=== PATIENT | male | born 1940 | race Caucasian/White ===

== ENCOUNTER → 2023-11-21 08:32 | Outpatient (REF) | payer MEDICARE, OTHER, SELFPAY ==
[2023-11-21 12:15] LABS: Urine Albumin Negative (Neg - Trace); Urine Bilirubin Negative (Negative); Urine Character Clear (Clear); Urine Color Yellow; Urine Glucose Negative (Negative); Urine Ketone Negative (Negative); Urine Leukocyte Negative (Negative); Urine Nitrite Negative (Negative); Urine Occult Blood Negative (Negative); Urine Urobilinogen Negative (Neg - 1+)
[2023-11-21 12:17] LABS: % Basophils 0.6 % (0-2); % Eosinophils 2.7 % (0-6); % Immature Granulocytes 0.4 % (0-0.5); % Lymphocytes 26.9 % (20.5-51.1); % Monocytes 8.5 % (1.7-9.3); % Neutrophils 60.9 % (42.2-75.2); Absolute Basophils 0.1 10^3/uL (0-0.2); Absolute Eosinophils 0.3 10^3/uL (0-0.7); Absolute Lymphocytes 2.8 10^3/uL (1.2-3.4); Absolute Monocytes 0.9 10^3/uL (0.1-0.6); Absolute Neutrophils 6.3 10^3/uL (1.4-6.5); Hematocrit 38.8 % (39.0-52.0); Hemoglobin 12.7 g/dL (13.0-18.0); Mean Corp Hgb Conc. 32.7 g/dL (33.0-37.0); Mean Corpuscular Volume 91.7 fL (80.0-94.0); Mean Platelet Volume 10.1 fL (7.4-10.4); Nucleated Red Blood Cells % 0 % (-); Platelet Count 211 10^3/uL (130-400); Red Blood Cell Count 4.23 10^6/uL (4.70-6.10); Red Cell Dist. Width 15.5 % (11.5-14.5); White Blood Cell Count 10.3 10^3/uL (4.8-10.8)
[2023-11-21 13:02] LABS: ALT (SGPT) 25 U/L (0-50); AST (SGOT) 26 U/L (17-59); Albumin 3.8 g/dl (3.5-5.0); Alkaline Phosphatase 72 U/L (38-126); Blood Urea Nitrogen 17 mg/dl (9-20); Calcium 9.2 mg/dl (8.4-10.2); Carbon Dioxide 31 mmol/L (22-30); Chloride 103 mmol/L (98-107); Glucose 81 mg/dl (70-99); HDL Cholesterol 45 mg/dl; LDL Cholesterol, Calculated 33 mg/dl; Potassium 3.6 mmol/L (3.5-5.1); Sodium 139 mmol/L (135-145); Total Bilirubin 0.7 mg/dl (0.2-1.3); Total Cholesterol 107 mg/dl (50-199); Total Protein 6.2 g/dl (6.3-8.2); Triglyceride 148 mg/dl (10-149); Very Low Density Lipoprotein 29 mg/dl (0-30); eGFR > 60.00
[2023-11-21 13:06] LABS: Vitamin D, 25-OH*** 37.7 ng/mL (30-80)
[2023-11-21 13:20] LABS: TSH Reflex To Free T4 3.71 uIU/ml (0.47-4.68)
[2023-11-23 09:37] LABS: Intact PTH 97.3 pg/ml (13.6-85.8)
== END ==
LOC: HWLAB 08:32
PROVIDERS: ATTENDING PHYSICIAN Family Medicine; REFERRING PHYSICIAN Internal Medicine Cardiovascular Disease
DX: S22.080S Wedge compression fracture of T11-T12 vertebra, sequela (principal); M85.859 Other specified disorders of bone density and structure, unspecified thigh; I10 Essential (primary) hypertension; E78.2 Mixed hyperlipidemia; N18.31 Chronic kidney disease, stage 3a; K21.9 Gastro-esophageal reflux disease without esophagitis; R60.0 Localized edema; I25.10 Atherosclerotic heart disease of native coronary artery without angina pectoris
CPT/HCPCS: 36415; 80053; 80061; 81003; 82306; 83970; 84443; 85025

== ENCOUNTER → 2023-12-13 11:15 | Outpatient (REF) | payer MEDICARE, OTHER, SELFPAY ==
[2023-12-13 11:52] LABS: Ionized Calcium 1.21 mMOL/L (1.15-1.33)
[2023-12-13 11:54] LABS: % Basophils 0.8 % (0-2); % Eosinophils 3.2 % (0-6); % Immature Granulocytes 0.4 % (0-0.5); % Lymphocytes 19.6 % (20.5-51.1); % Monocytes 7.4 % (1.7-9.3); % Neutrophils 68.6 % (42.2-75.2); Absolute Basophils 0.1 10^3/uL (0-0.2); Absolute Eosinophils 0.3 10^3/uL (0-0.7); Absolute Lymphocytes 1.8 10^3/uL (1.2-3.4); Absolute Monocytes 0.7 10^3/uL (0.1-0.6); Absolute Neutrophils 6.2 10^3/uL (1.4-6.5); Hematocrit 38.8 % (39.0-52.0); Hemoglobin 12.7 g/dL (13.0-18.0); Mean Corp Hgb Conc. 32.7 g/dL (33.0-37.0); Mean Corpuscular Hgb 29.7 pg (27.0-31.0); Mean Corpuscular Volume 90.9 fL (80.0-94.0); Mean Platelet Volume 9.8 fL (7.4-10.4); Nucleated Red Blood Cells % 0 % (-); Platelet Count 227 10^3/uL (130-400); Red Blood Cell Count 4.27 10^6/uL (4.70-6.10); Red Cell Dist. Width 14.8 % (11.5-14.5); White Blood Cell Count 9.1 10^3/uL (4.8-10.8)
[2023-12-13 12:56] LABS: Calcium 9.6 mg/dl (8.4-10.2); Iron 75 ug/dl (49-181)
[2023-12-13 13:07] LABS: Percent Saturation 24 % (20-50); Total Iron Binding Capacity 301 ug/dl (261-462)
[2023-12-13 13:32] LABS: Ferritin 76.5 ng/ml (17.9-464.0)
[2023-12-13 14:03] LABS: Folate > 20.0 ng/ml (2.76-20); Vitamin B12 529 pg/ml (239-931)
[2023-12-14 11:18] LABS: Intact PTH 99.6 pg/ml (13.6-85.8)
[2023-12-16 01:15] LABS: IgA 193 mg/dl (70-400)
[2023-12-16 07:13] LABS: Endomysial IgA Antibody Titer <1:10 (<1:10)
[2023-12-17 03:03] LABS: Albumin 4.03 g/dL (3.75-5.01); Alpha 1 Globulin 0.35 g/dL (0.19-0.46); Alpha 2 Globulin 0.99 g/dL (0.48-1.05); Free Kappa Light Chains,Quant 26.77 mg/L (3.30-19.40); Free Lambda Light Chains,Quant 17.42 mg/L (5.71-26.30); IgA 197 mg/dL (68-408); IgG 802 mg/dL (768-1632); IgM 66 mg/dL (35-263); Immunofixation Electrophoresis IFE Done; Kappa/Lambda Fr Light Ratio 1.54 (0.26-1.65)
[2023-12-18 15:52] LABS: tTG IgA Antibody 6.8 EU/ml (0-19); tTG IgG Antibody 4.7 EU/ml (0-19)
== END ==
LOC: REG 11:15
PROVIDERS: Physician Assistant; ATTENDING PHYSICIAN Family Medicine
DX: D80.1 Nonfamilial hypogammaglobulinemia (principal); E21.5 Disorder of parathyroid gland, unspecified; K90.0 Celiac disease; M80.00XA Age-related osteoporosis with current pathological fracture, unspecified site, initial encounter for fracture; Z13.820 Encounter for screening for osteoporosis; D64.9 Anemia, unspecified
CPT/HCPCS: 36415; 82330; 82607; 82728; 82746; 82784; 83516; 83521; 83540; 83550; 83970; 84155; 84165; 85025; 86231; 86334

== ENCOUNTER 2023-12-20 21:27 | Inpatient (IN) | payer MEDICARE, OTHER, SELFPAY ==
[2023-12-20] VITALS (8 sets, daily range): BP systolic 106–137; BP diastolic 72–100; BMI 32.7; BMI 31.2
[2023-12-20 17:59] LABS: ALT (SGPT) 15 U/L (0-50); AST (SGOT) 26 U/L (17-59); Albumin 3.9 g/dl (3.5-5.0); Alkaline Phosphatase 68 U/L (38-126); Blood Urea Nitrogen 17 mg/dl (9-20); Calcium 9.3 mg/dl (8.4-10.2); Carbon Dioxide 25 mmol/L (22-30); Chloride 102 mmol/L (98-107); Estimated Creatinine Clearance 55 ml/min; Glucose 115 mg/dl (70-99); Potassium 4.2 mmol/L (3.5-5.1); Sodium 137 mmol/L (135-145); Total Bilirubin 0.8 mg/dl (0.2-1.3); Total Protein 6.5 g/dl (6.3-8.2); eGFR > 60.00
[2023-12-20 18:00] LABS: % Basophils 0.9 % (0-2); % Eosinophils 1.9 % (0-6); % Immature Granulocytes 0.3 % (0-0.5); % Lymphocytes 19.3 % (20.5-51.1); % Neutrophils 65.6 % (42.2-75.2); Absolute Basophils 0.1 10^3/uL (0-0.2); Absolute Eosinophils 0.2 10^3/uL (0-0.7); Absolute Monocytes 1.2 10^3/uL (0.1-0.6); Absolute Neutrophils 6.8 10^3/uL (1.4-6.5); Hematocrit 37.1 % (39.0-52.0); Hemoglobin 12.6 g/dL (13.0-18.0); Mean Corpuscular Hgb 30.2 pg (27.0-31.0); Mean Platelet Volume 10.2 fL (7.4-10.4); Nucleated Red Blood Cells % 0 % (-); Platelet Count 230 10^3/uL (130-400); Red Blood Cell Count 4.17 10^6/uL (4.70-6.10); Red Cell Dist. Width 14.9 % (11.5-14.5); White Blood Cell Count 10.3 10^3/uL (4.8-10.8)
[2023-12-20 18:05] LABS: COVID-19 Antigen Negative (Negative)
[2023-12-20 18:10] LABS: NT-proBNP 851 pg/ml
--- NOTE | 2023-12-20 18:38 | ED.GENMED ---
History of Present Illness
General
Chief Complaint: Weakness
Source: patient and spouse
Exam Limitations: none
Time Seen by Provider: 12/20/23 18:25
Travel History
Have you had any contact with someone who has COVID-19?: No
Do you have any symptoms of coronavirus? Fever > 100 degrees, chills, cough, shortness of breath, sore throat, loss of taste or smell, muscle aches, or headache?: No
History of Present Illness
History of Present Illness:
83-year-old male with increased weakness over the last week. Seem to correlate with stopping his prednisone. He had been lowering his dose and had been on it for a few years. Was on 5 mg which was stopped prior to the symptoms. Some increased
back pain but this has been an ongoing issue. No fever chills abdominal pain urinary symptoms or other complaints
Past History
Past History
ED Past Medical History: CAD, COPD, GERD, HTN, Hypercholesterolemia, Other (T12 compression fracture) and Other (Home oxygen)
ED Past Surgical History: Cardiac and Orthopedic
Social History
Tobacco: Former smoker
Alcohol: Occasional
Personal:
Phy Exam
Physical Exam
Physical Exam:
GENERAL: Initially asleep but easily arousable. Chronically ill-appearing. Chronic oxygen therapy.
EYE: Orbits normal.
NECK: Supple
CARDIAC: Regular rate and rhythm without any obvious murmurs.
LUNGS: Decreased breath sounds diffusely
ABDOMEN: Soft, without focal tenderness or distention
NEUROLOGICAL: Alert and oriented , grossly non-focal. Generally weak with very weak lower extremities bilaterally. Barely able to raise both legs up off the stretcher. Mildly weak upper extremities bilaterally but nonfocal
SKIN: Warm and dry, no rash or lesion, no discoloration, skin intact.
MUSCULOSKELETAL: Moderate bilateral lower extremity pitting edema
PSYCH: Normal and appropriate interaction.
Course
Orders/Labs/Results
Orders:
Orders
12/20/23 17:31
Electrocardiogram (*1) Urgent
Reason for Study: Chest Pain
Electrocardiogram (*1) Urgent
Reason for Study: Fatigue / Weakness
EKG- Treatment ONCE
12/20/23 17:38
CMP [Comprehensive Metabolic Panel] Urgent
COVID-19 Antigen Urgent
Source: Nasal Swab
Complete Blood Count/With Diff Urgent
NT-proBNP Urgent
TSH Reflex To Free T4 Urgent
Comment: ADD ON
Troponin I Urgent
INF RAPID [Influenza A+B Rapid Molecular] Urgent
STEPHEN Source: Nasal Swab
Specimen Description:
12/20/23 18:36
CT Thoracic Spine W/o Iv Contr Urgent
Comment:
Reason For Exam: evaluate t12 fx. increased pain and weakness
12/20/23 18:37
Add On- LAB Urgent
Tests Added?: tsh reflex t4
Urinalysis Reflex To Culture Urgent
12/20/23 20:02
Azithromycin 500 mg/250 ml [Zithromax Infusion] 500 mg in 250 ml IV NOW
CefTRIAXone [Rocephin] 1,000 mg IV NOW STA
12/20/23 20:07
Sterile Water [Sterile Water For Injection] 10 ml .ROUTE .[facility]
12/20/23 20:16
Blood Culture Q30M
STEPHEN Source: Blood/Venous
Specimen Description:
Blood Culture Q30M
STEPHEN Source: Blood/Venous
Specimen Description:
12/20/23 21:08
Admit/Transfer Patient As Directed
Co-Sign Provider:
Level of Care: Inpatient admission
Assign to:: Medical/Surgical
Physician / Group: [email or web address]
Diagnosis: PNA, weakness, presumed Prednisone withdrwal
Reason for Hospitalization: PNA, weakness, presumed Prednisone withdrwa
Expected length of stay greater than two midnights?: Yes
ELOS- Estimated Length of Stay in days: 3
I certify the patient meets the requirements for IP care: Yes
12/20/23 21:10
Code Status As Directed
Resuscitation Status: Full Code
12/21/23 06:00
Procalcitonin IN AM
PCT Algorithmm Indication: Respiratory
Abnormal Lab Results
12/20/23
17:38
RBC 4.17 L 10^6/uL
(4.70-6.10)
Hgb 12.6 L g/dL
(13.0-18.0)
Hct 37.1 L %
(39.0-52.0)
RDW 14.9 H %
(11.5-14.5)
Absolute Neuts (auto) 6.8 H 10^3/uL
(1.4-6.5)
Absolute Monos (auto) 1.2 H 10^3/uL
(0.1-0.6)
Lymphocytes % 19.3 L %
(20.5-51.1)
Monocytes % 12.0 H %
(1.7-9.3)
Glucose 115 H mg/dl
(70-99)
12/20/23 17:38
12/20/23 17:38
Vital Signs
Initial and Last Documented VS:
Initial Vital Signs
Temp Pulse Resp BP Pulse Ox
98.3 F 101 22 110/72 96
12/20/23 16:28 12/20/23 16:28 12/20/23 16:28 12/20/23 16:28 12/20/23 16:28
Last Documented Vital Signs
Temp Pulse Resp BP Pulse Ox
97.4 F 85 20 109/82 96
12/20/23 19:19 12/20/23 19:15 12/20/23 19:15 12/20/23 18:00 12/20/23 19:15
*Radiology
Radiology exam reviewed: radiology read reviewed (Stable compression fracture. Pneumonia right lower lobe.)
*Pulse Oximetry
Patient hypoxic: no
*Critical Care Note
Total Time (30-74mins, 75-104mins- exclusive of procedures): Not Applicable
Data Reviewed
Review of Other/Old Records Reveals: Labs, Records and Radiology Studies
Update Note
Update Note:
Patient's weakness likely secondary to pneumonia with a possible contributor Tatian from the steroid taper. Clearly too weak to go home.
ED Attending Note
-
Portions of this chart may have been created with voice recognition software.� Occasional wrong word or��sound alike� substitutions may have occurred due to the inherent limitations of voice recognition software.
Discharge Plan
Departure
Patient Disposition: Admit
Date of Disposition: 12/20/23
Time of Disposition: 20:04
Presentation/result/management discussed w/ accepting MD/DO: Hospitalist
Discharge Problem:
Right lower lobe pneumonia, Stable compression fracture T12, Recent steroid taper
Prescriptions:
No Action
simvastatin 20 MG tablet
20 mg PO HS
aspirin 81 MG tablet,delayed release (DR/EC)
81 mg PO DAILY
omeprazole 20 MG capsule,delayed release(DR/EC)
20 mg PO DAILY@1200
cyclosporine [Restasis] 10 DROPS dropperette
1 drp BOTH EYES BID
omega 1-uop-ycd-fish oil [Fish Oil] 1 EACH capsule
1 ea PO DAILY
multivitamin with folic acid [Tab-A-Jose] 1 TABLET tablet
1 tab PO DAILY
acetaminophen [Tylenol Extra Strength] 500 MG tablet
500 mg PO BID PRN (Reason: mild pain)
PreserVision AREDS-2 1 EACH capsule
1 ea PO DAILY
flaxseed oil 1,000 mg Capsule
1,000 mg PO DAILY
carboxymethylcellulose sodium [Refresh Plus] 0.5 % Dropperette
1 drp BOTH EYES TID
pregabalin 100 mg capsule
100 mg PO BID@1200,1800
Patient Comments:
12/20/2023: last filled 11/07/23, 540 tabs for 90 days from [facility]
pregabalin 100 MG capsule
200 mg PO AMHS
Patient Comments:
12/20/2023: last filled 11/07/23, 540 tabs for 90 days from [facility]
calcium citrate-vitamin D3 [Calcium Citrate + D] 315 mg-5 mcg (200 unit) Tablet
1 tab PO DAILY
azithromycin 250 mg tablet
250 mg PO MOWEFR
hydrocodone-acetaminophen 5-325 mg tablet
1 tab PO Q6H PRN (Reason: moderate pain)
Patient Comments:
12/20/2023: last filled 11/25/23, 120 tabs for 30 days from [facility]
prednisone 5 mg tablet
5 mg PO QPM
furosemide 20 mg tablet
20 mg PO DAILY
Referrals:
Rebecca Rebolledo MD [Family Provider] -
Interventions
Interventions:
*Risk Screen - Suicide Last Done: 12/20/23 17:51
*General Assessment Last Done: 12/20/23 17:14
*Neglect/Abuse Screening Last Done: 12/20/23 17:51
*ED COVID-19 Vaccine History Last Done: 12/20/23 16:28
ED- Cardiac Assessment Last Done: 12/20/23 17:47
ED- Neurological Assessment Last Done: 12/20/23 19:20
ED- Pulmonary Assessment Last Done: 12/20/23 19:20
[2023-12-20] MEDS: ROCEPHIN 1000 MG IV (20:17)
[2023-12-20] MEDS: ZITHROMAX INFUSION 250 IV (20:18)
[2023-12-20 20:37] LABS: TSH Reflex To Free T4 1.45 uIU/ml (0.47-4.68)
--- NOTE | 2023-12-20 21:03 | HPS.HSE ---
Family Physician
-
Family Physician: Rebecca Rebolledo
Chief Complaint
-
weakness
History of Present Illness
83M HX COPD/ ISL Dz, on chronic prednisone , home O2 CAD, HTN, Syncope, chronic severe T12 compression fracture pw progressive weakness and intermittent lethargy but easily arousable
HX chronic prednisone 10 mg daily . Recently Prednisone was weaning down 5mg then to zero since last Saturday
Medical History
Past Medical History
Past Medical History: Reports HTN, Hypercholesterolemia and Other (COPD, chr [place] Dz on chr prednsioanoe and home O2 , GERD )
Past Surgical History: Reports Orthopedic (T12 compression fracture)
Social History
Tobacco: Former Smoker
Alcohol: Occasional
Personal:
Living: With Family
Family History
Family History: Not pertinent
Allergies / Home Medications
Allergies reflects when Allergies were last updated in [employer].
Home Medications with original date entered in [employer]
Allergy/Medication List:
Allergies
Allergy/AdvReac Type Severity Reaction Status Date / Time
hydromorphone HCl Allergy Itching Verified 12/20/23 16:35
[From Dilaudid]
Home Medications
simvastatin 20 mg tablet 20 mg PO HS High cholesterol 10/25/10
acetaminophen 500 mg tablet (Tylenol Extra Strength) 500 mg PO BID PRN mild pain 02/11/20
aspirin 81 mg tablet,delayed release 81 mg PO DAILY Blood clot prevention/tx 02/11/20
cyclosporine 0.05 % eye drops in a dropperette (Restasis) 1 drp BOTH EYES BID Eye condition 02/11/20
multivitamin with folic acid 400 mcg tablet (Tab-A-Jose) 1 tab PO DAILY Supplement 02/11/20
omega 5-jev-suu-fish oil 300 mg-1,000 mg capsule (Fish Oil) 1 ea PO DAILY Supplement 02/11/20
omeprazole 20 mg capsule,delayed release 20 mg PO DAILY@1200 Gastrointestinal issue 02/11/20
vit C 250 mg-vit E 90 mg-zinc 40 mg-copper 1 az-lbuxyj-layose capsule (PreserVision AREDS-2) 1 ea PO DAILY Supplement 02/11/20
calcium citrate 315 mg-vitamin D3 5 mcg (200 unit) tablet (Calcium Citrate + D) 1 tab PO DAILY 09/18/23
carboxymethylcellulose sodium 0.5 % eye drops in a dropperette (Refresh Plus) 1 drp BOTH EYES TID 09/18/23
flaxseed oil 1,000 mg capsule 1,000 mg PO DAILY 09/18/23
pregabalin 100 mg capsule 100 mg PO BID@1200,1800 09/18/23
pregabalin 100 mg capsule 200 mg PO AMHS 09/18/23
azithromycin 250 mg tablet 250 mg PO MOWEFR 12/20/23
furosemide 20 mg tablet 20 mg PO DAILY 12/20/23
hydrocodone 5 mg-acetaminophen 325 mg tablet 1 tab PO Q6H PRN moderate pain 12/20/23
prednisone 5 mg tablet 5 mg PO QPM 12/20/23
Review of Systems
-
Constitutional: Reports See HPI and Fatigue
EENT: Reports No Symptoms
Respiratory: Reports No Symptoms
Cardiac: Reports No Symptoms
Abdomen/GI: Reports No Symptoms
: Reports No Symptoms
Musculoskeletal: Reports No Symptoms
Skin: Reports No Symptoms
Neurological: Reports No Symptoms
Endocrine: Reports No Symptoms
Hematologic/Lymphatic: Reports No Symptoms
Psych: Reports No Symptoms
Physical Exam
Vital Signs
Vital Signs
Temp Pulse Resp BP Pulse Ox
97.4 F 85 20 109/82 96
12/20/23 19:19 12/20/23 19:15 12/20/23 19:15 12/20/23 18:00 12/20/23 19:15
Physical Exam
General: Well Developed, Well Nourished, No Apparent Distress and Other (lethargic but easily arousabl and following commands )
HEENT: NormoCephalic and Anicteric
Respiratory: Other (symmetric AE ); No Wheezes or Rhonchi
Cardiac: S1/S2 and Regular Rhythm
Breast: Deferred by me
GI: Soft, Non Tender, Non Distended and Normal Bowel Sounds
Genito-urinary: Deferred by me
Musculoskeletal: Edema, Left Lower Extremity (mild ) and Edema, Right Lower Extremity (mild )
Skin: Warm and Dry
Neuro: Other (lethargic but easily arousable )
Hematologic/Lymphatic: Other
Psych: Other (lethargic )
Laboratory Results
-
12/20/23 17:38
12/20/23 17:38
Laboratory Results
Total Bilirubin 0.8 mg/dl (0.2-1.3) 12/20/23 17:38
AST 26 U/L (17-59) 12/20/23 17:38
ALT 15 U/L (0-50) 12/20/23 17:38
Alkaline Phosphatase 68 U/L (38-126) 12/20/23 17:38
Troponin I 0.020 ng/ml 12/20/23 17:38
Data Reviewed
-
Diagnostic Radiology: Report Reviewed by me
Medical Tests (Nuc Med, Echo, EKG etc): Report Reviewed by me
Lab Data: Labs Reviewed by me
Old Records: Reviewed
Impression/Plan
-
Reviewed VS: afebrile HR 85 RR 20 BP 110/80 POx 96 on 3 L
Data
WCC 10.3
Hgb 12.6 was 12.7 on 12/13/23
Nl BMP and Nl GFR
pro BNP 850
TSH 1.45
NEG TPNI
EKG report
SINUS RHYTHM WITH PREMATURE ATRIAL COMPLEXES
LEFT AXIS DEVIATION
RIGHT BUNDLE BRANCH BLOCK
POSSIBLE LATERAL INFARCT , AGE UNDETERMINED
INFERIOR INFARCT , AGE UNDETERMINED
ABNORMAL ECG
WHEN COMPARED WITH ECG OF 10-OCT-2023 11:28,
PREMATURE VENTRICULAR COMPLEXES ARE NO LONGER PRESENT
PREMATURE ATRIAL COMPLEXES ARE NOW PRESENT
BORDERLINE CRITERIA FOR LATERAL INFARCT ARE NOW PRESENT
Pending UA
BCx
Echo 04/03/23:
EF 55-60%, no RWMA. Aortic sclerosis without stenosis. Mild aortic regurgitation. Mild tricuspid regurgitation. Normal PASP. Estimated pulmonary artery pressure of 28 mmHg, assuming a right atrial pressure of 3 mmHg. Ectatic proximal ascending
aorta: 3.[address] Thor[address] Spine W/o Iv Contr
- Subacute to chronic severe T12 compression fracture as described, similar to priors.
- Chronic interstitial lung disease changes with superimposed right lower lobe PNA
Last hospitalist admission: 09/28/23- 09/20/23
P Dxs: Syncope, Acute/subacute T12 compression fracture
ASSESSMENT & PLAN
CXR suggestive of Rt LLL PNA - presumed CAP
- check UA and BCx
- cont. IV CFTZ and PO Z max
- check procalcitonin
- cont. 3 L NC O2
HX COPD/ [place] Dx on chr Home O2 on chr Z max on MWF
Recent cessation of chr prednisone
- Resume PO prednisone 10mg daily and observe
B/L Acacia intermittent edema
HX LVEF 55- 60
- check pro BNP
- cont . PO Lasix for now
Progressive weakness:
DDX; PNA, Cessation of chr prednisone
- PT/OT
- Fall precaution
- Treat PNA and resume PO prednisone 10 mg daily - observe
HX Syncope on last admission
HX Known T12 comp fx:
Other problems:
Coronary artery disease: cont ASA/statin
Peripheral Neuropathy: cont Lyrica
Essential hypertension:
GERD: on PPI
Hyperlipidemia: cont statin
DVT Px: LMWH
Code: Full
IP MS
[2023-12-20 22:48] LABS: B.E. 1.2 mmol/L; O2 Saturation % 97.1 % (94-98); PCO2 41 mmHg (35-48); PO2 81 mmHg (83-108); pH 7.41 (7.35-7.45)
[2023-12-20] MEDS: LIPITOR 10 MG PO (23:56)
[2023-12-20] MEDS: LYRICA 100 MG PO (23:57)
--- NOTE | 2023-12-21 00:58 | PTCARENOTE ---
Received pt from ER @ [id number]. Pt pulled over to bed due to new weakness. Pt AAOx3, [place]. Pt oriented to room, call richardson and plan of care.
[2023-12-21 05:40] LABS: Urine Albumin Negative (Neg - Trace); Urine Bilirubin Negative (Negative); Urine Character Clear (Clear); Urine Color Yellow; Urine Glucose Negative (Negative); Urine Ketone Negative (Negative); Urine Leukocyte Negative (Negative); Urine Nitrite Negative (Negative); Urine Occult Blood Negative (Negative); Urine Urobilinogen Negative (Neg - 1+); Urine pH 6.5 (5.0-9.0)
[2023-12-21 06:38] LABS: Hematocrit 34.9 % (39.0-52.0); Hemoglobin 11.6 g/dL (13.0-18.0); Mean Corp Hgb Conc. 33.2 g/dL (33.0-37.0); Mean Corpuscular Hgb 29.9 pg (27.0-31.0); Mean Corpuscular Volume 89.9 fL (80.0-94.0); Mean Platelet Volume 10.2 fL (7.4-10.4); Platelet Count 219 10^3/uL (130-400); Red Blood Cell Count 3.88 10^6/uL (4.70-6.10); Red Cell Dist. Width 14.6 % (11.5-14.5)
[2023-12-21 07:03] LABS: Blood Urea Nitrogen 16 mg/dl (9-20); Carbon Dioxide 29 mmol/L (22-30); Chloride 104 mmol/L (98-107); Estimated Creatinine Clearance 54 ml/min; Glucose 90 mg/dl (70-99); Sodium 140 mmol/L (135-145); eGFR > 60.00
[2023-12-21 07:10] LABS: Potassium 3.8 mmol/L (3.5-5.1)
[2023-12-21 07:26] LABS: Procalcitonin < 0.05 ng/ml (0.0-0.25)
[2023-12-21 07:35] VITALS: BP 157/74
[2023-12-21] MEDS: LYRICA 100 MG PO ×2 (07:49→21:24)
[2023-12-21] MEDS: LASIX 20 MG PO (07:51)
[2023-12-21] MEDS: RESTASIS 0.05% OPHTHALMIC EMULSION 1 DROPS BOTH EYES ×2 (07:51→19:46)
[2023-12-21] MEDS: ASPIR LOW (ENTERIC COATED) 81 MG PO (07:51)
[2023-12-21] MEDS: LYRICA 50 MG PO ×2 (12:25→17:38)
--- NOTE | 2023-12-21 12:48 | PTOTSP ---
ST Evaluation
Oropharyngeal function appears intact at the bedside
Pt received awake/alert with spouse at the bedside. Minimal verbal output from patient but is answering yes/no questions and following 1 step commands. Nasal cannula 3Lo2 [address] respirations appear even/unlabored. States he has a baseline/chronic
cough that is stable. Spouse reports GERD is well controlled with PPI and zantac at this time.
Feeding assist provided by spouse. Pt demo adequate oral access/containment of mixed consistency (soup), functional mastication and bolus was orally cleared. Thin liquids by straw and cup sip swallow appears prompt. No change in vocal quality. No
overt s/sx of aspiration observed.
Recommend
1. Continue Regular solids/thin liquids
2. Standard aspiration and SAADIA/reflux precautions
3. Feeding assist as needed
4. Meds with sips of water
5. No further acute SUBSORTER needs. SUBSORTER signing off please reconsult as needed
[2023-12-21 13:17] VITALS: BP 93/40; PULSE 117; O2SAT 92
--- NOTE | 2023-12-21 14:45 | W.PN.HOSP.TC ---
Today's Communication/Plan
-
vanc, zosyn; f/u mrsa swab
wean o2
incentive megan jones duonebs
Assessment / Plan
Assessment / Plan
Physical Exam
General: Well Developed, Well Nourished, No Apparent Distress and Other (lethargic but easily arousable and following commands )
HEENT: NormoCephalic and Anicteric
Respiratory: Other (symmetric AE ); No Wheezes or Rhonchi
Cardiac: S1/S2 and Regular Rhythm
Breast: Deferred by me
GI: Soft, Non Tender, Non Distended and Normal Bowel Sounds
Genito-urinary: Deferred by me
Musculoskeletal: Edema, Left Lower Extremity (mild ) and Edema, Right Lower Extremity (mild )
Skin: Warm and Dry
Neuro: Other (lethargic but easily arousable )
Hematologic/Lymphatic: Other
Psych: Other (lethargic )
CXR suggestive of Rt LLL PNA - presumed CAP
Hypoxia
-F/u blood cultures
-Switch to vanc, zosyn
-f/u MRSA
- check procalcitonin
- cont. 3 L NC O2 - wean off as tolerated
-duonebs
HX COPD/ [place] Dx on chr Home O2 on chr azithromax on MWF
has been off prednisone x 1 week- remain off
-no active wheezing at this time, and with suspicion of bacterial infection - will cont to hold
B/L Acacia intermittent edema
HX LVEF 55- 60
- euvolemic
- cont . PO Lasix for now
Progressive weakness:
DDX; PNA, Cessation of chr prednisone
- PT/OT
- Fall precaution
- Treat PNA
HX Syncope on last admission
HX Known T12 comp fx:
Other problems:
Coronary artery disease:� cont ASA/statin
Peripheral Neuropathy: cont Lyrica
Essential hypertension:
GERD: on PPI
Hyperlipidemia: cont statin
DVT Px: LMWH
Code: Full
IP MS�
Total time spent on today's encounter was 50 minutes which included time spent in counseling the patient/family regarding diagnosis and treatment plan as listed above, goals of care, and symptom management. Case was discussed with nursing staff,
specialists, and care coordinators/case management. All labs and imaging personally reviewed by me. Remainder the time spent in detailed review of previous records, lab data, imaging, and other medical provider documentation.
Anticipated Discharge: > 48 hours
Subjective/Interval History
-
Date of Service: December 21, 2023
No acute events
Objective Data
-
Labs:
Laboratory Results
12/21/23
05:52
WBC 9.0
Hgb 11.6 L
Hct 34.9 L
Plt Count 219
Sodium 140
Potassium 3.8
Chloride 104
Carbon Dioxide 29
BUN 16
Creatinine 1.1
Glucose 90
Calcium 9.0
Vital Signs:
Vital Signs
Temp Pulse Resp BP Pulse Ox
98 F 99 20 157/74 99
12/21/23 07:35 12/21/23 07:35 12/21/23 07:35 12/21/23 07:35 12/21/23 07:50
I&O
12/20/23 12/21/23 12/22/23
06:59 06:59 06:59
Output Total 300 / 300
Balance -300 / -300
Review of Systems
-
History Source: Patient
All other systems: Not reviewed unless documented
Data Reviewed
-
Diagnostic Radiology: Image personally visualized and interpreted and Report Reviewed by me
CT Scan: Image personally visualized and interpreted and Report Reviewed by me
Labs: Labs Reviewed by me
[2023-12-21] MEDS: NORCO 5/325 1 TABLET PO (14:51)
--- NOTE | 2023-12-21 15:58 | PHA.VAN.IN ---
Assessment
- Assessment
Renal Function: Appears similar to baseline
Concomitant Antimicrobials: CEFEPIME
Plan
- Plan
Initial / Loading Dose: VANCO 2000MG X1
Monitoring: RANDOM 12/21 @0600
MRSA Screen: Ordered per protocol
CONSIDERING PT'S AGE WILL ORDER RANDOM LEVEL AFTER LOADING DOSE FOR FURTHER EVALUATION OF DOSING REGIMEN
Pharmacokinetics Vancomycin I
- -
Patient Age: 83
Patient Sex: Male
Vancomycin Day #: 1
Indication: PULM
Requesting Provider: DR. DIEZ
Height / Weight:
Height 5 ft 7 in
Actual Weight 90.31 kg
Pertinent Past Medical History: COPD ON CHRONIC STEROIDS
- Vital Signs / Lab Results
Temp Pulse Resp BP Pulse Ox
98 F 99 20 157/74 99
12/21/23 07:35 12/21/23 07:35 12/21/23 07:35 12/21/23 07:35 12/21/23 07:50
Lab Results - Hematology
12/20/23 12/21/23
17:38 05:52
WBC 10.3 9.0
Lab Results - Chemistry
12/20/23 12/21/23
17:38 05:52
BUN 17 16
Creatinine 1.1 1.1
Estimated Creat Clear 55 54
Albumin 3.9
Lab Results - Urine
12/21/23
05:10
Urine Nitrite (Reflex) Negative
Leukocyte Esterase Rfl Negative
Microbiology Results
12/20/23 17:38 Influenza Types A & B (TOMMIE) - Final
Nasal Swab Negative for Influenza A & B, NAAT
Negative results must be combined with clinical observations
and patient history.
Nucleic Acid Amplification test (NAAT)performed on the
[employer] platform.
[2023-12-21] MEDS: VANCOCIN 540 MG IV (16:00)
[2023-12-21] MEDS: MAXIPIME 2000 MG IV ×2 (16:03→23:47)
[2023-12-21] MEDS: STERILE WATER FOR INJECTION 10 ML IV ×2 (16:03→23:47)
[2023-12-21] MEDS: DUONEB 3 ML INH ×2 (16:21→19:28)
[2023-12-21 16:44] VITALS: BP 92/60
[2023-12-21] MEDS: LOVENOX 40 MG SC (17:39)
[2023-12-21] MEDS: ZITHROMAX 500 MG PO (19:48)
[2023-12-21] MEDS: LIPITOR 10 MG PO (21:25)
[2023-12-21 22:53] VITALS: BP 110/55
[2023-12-22] MEDS: DUONEB 3 ML INH ×7 (00:16→23:31)
[2023-12-22 05:59] LABS: Hemoglobin 11.1 g/dL (13.0-18.0); Mean Corp Hgb Conc. 32.6 g/dL (33.0-37.0); Mean Corpuscular Hgb 29.8 pg (27.0-31.0); Mean Corpuscular Volume 91.2 fL (80.0-94.0); Mean Platelet Volume 9.9 fL (7.4-10.4); Platelet Count 220 10^3/uL (130-400); Red Blood Cell Count 3.73 10^6/uL (4.70-6.10); Red Cell Dist. Width 14.5 % (11.5-14.5); White Blood Cell Count 11.8 10^3/uL (4.8-10.8)
[2023-12-22 06:17] LABS: Vancomycin Random 13.4 ug/ml
[2023-12-22 06:23] LABS: ALT (SGPT) 15 U/L (0-50); AST (SGOT) 31 U/L (17-59); Albumin 3.1 g/dl (3.5-5.0); Alkaline Phosphatase 60 U/L (38-126); Blood Urea Nitrogen 16 mg/dl (9-20); Calcium 8.5 mg/dl (8.4-10.2); Carbon Dioxide 26 mmol/L (22-30); Chloride 105 mmol/L (98-107); Estimated Creatinine Clearance 49 ml/min; Glucose 105 mg/dl (70-99); Magnesium 1.8 mg/dl (1.6-2.3); Phosphorus 4.3 mg/dl (2.5-4.5); Potassium 3.5 mmol/L (3.5-5.1); Sodium 136 mmol/L (135-145); Total Bilirubin 1.1 mg/dl (0.2-1.3); Total Protein 5.6 g/dl (6.3-8.2); eGFR 59.63
[2023-12-22] MEDS: LASIX 20 MG PO (07:08)
[2023-12-22] MEDS: ASPIR LOW (ENTERIC COATED) 81 MG PO (07:11)
[2023-12-22] MEDS: LYRICA 100 MG PO ×2 (07:11→20:42)
[2023-12-22] MEDS: RESTASIS 0.05% OPHTHALMIC EMULSION 1 DROPS BOTH EYES ×2 (07:11→20:39)
[2023-12-22] MEDS: MAXIPIME 2000 MG IV ×3 (07:12→23:01)
[2023-12-22] MEDS: STERILE WATER FOR INJECTION 10 ML IV ×3 (07:12→23:01)
[2023-12-22 07:43] VITALS: BP 119/62
--- NOTE | 2023-12-22 09:12 | PHA.VAN.FU ---
Vancomycin Assessment / Plan
- Assessment
Renal Function: SCR Increasing (1.1>1.2 (this is baseline renal function, 11/2023 1.2))
WBC's are: Trending Up (9>11.8)
In the past 24 hrs, patient has been: Afebrile
Concomitant Antimicrobials: Azithromycin, Cefepime
- Assessment - Therapeutic Drug Monitoring
Random Level: 13.4 drawn ~13.5 hrs after vancomycin 2000mg loading dose given
- Dosing Plan
Adjust Regimen to: Vancomycin 1250mg IV Q24hrs
New Regimen Predicts: AUC (529), Peak (35), Trough (13)
Dosing Comments: Vd utilized 0.6, T1/2 15
- Monitoring Plan
No level(s) ordered at this time: Will order levels according to vancomycin dosing protocol
MRSA Screen: Ordered per protocol (PCR results are pending)
- Follow Up
Pharmacy will continue to follow.
Vancomycin Follow UP
- -
Patient Age: 83
Patient Sex: Male
Vancomycin Day #: 2
Indication: Pulmonary/Respiratory
Requesting Provider: DR. DIEZ
Pertinent Antimicrobial Allergies:
No antibiotic allergies
Height / Weight:
Height 5 ft 7 in
Actual Weight 90.31 kg
IBW in k.1
Adjusted BW in k.8
Pertinent Past Medical History: BMI~31, COPD ON CHRONIC STEROIDS
- Vital Signs / Lab Results
Temp Pulse Resp BP Pulse Ox
97.7 F 92 16 119/62 97
12/22/23 07:43 12/22/23 07:43 12/22/23 07:43 12/22/23 07:43 12/22/23 07:43
Lab Results - Hematology
12/20/23 12/21/23 12/22/23
17:38 05:52 05:33
WBC 10.3 9.0 11.8 H
Lab Results - Chemistry
12/20/23 12/21/23 12/22/23
17:38 05:52 05:33
BUN 17 16 16
Creatinine 1.1 1.1 1.2
Estimated Creat Clear 55 54 49
Albumin 3.9 3.1 L
Microbiology Results
12/22/23 03:32 Legionella Urinary Antigen - Final
Urine Negative for Legionella pneumophila Serogroup 1 antigen.
A negative result does not rule out the possiblity of
Legionella infection due to other serogroups or species of
Legionella. Clinical correlation is recommended.
Streptococcus pneumoniae Antigen (M - Final
Negative for Streptococcus pneumoniae antigen.
A negative result does not exclude infection with
Streptococcus pneumoniae. Clinical correlation is
recommended.
12/20/23 20:16 Blood Culture - Preliminary
Blood/Venous No Growth in 24 hours- Final report to follow
12/20/23 20:16 Blood Culture - Preliminary
Blood/Venous No Growth in 24 hours- Final report to follow
12/20/23 17:38 Influenza Types A & B (TOMMIE) - Final
Nasal Swab Negative for Influenza A & B, NAAT
Negative results must be combined with clinical observations
and patient history.
Nucleic Acid Amplification test (NAAT)performed on the
[employer] platform.
Therapeutic Drug Monitoring
Random Vancomycin 13.4 ug/ml 12/22/23 05:33
--- NOTE | 2023-12-22 11:32 | CM ---
Reviewed the chart notes and spoke with the patient and his spouse at the bedside. The patient resides with his spouse in a split level home. The patient has a rolling walker, shower chair, and home O2 through [employer]. The patient has had [facility]
in the past and been to [facility] and [facility]. The patient confirmed his pharmacy of choice is the [facility]. continues to be available to patient/family and is monitoring medical plan for needs at discharge.
Plan: Discharge plans will depend on the patient's progress.
[2023-12-22] MEDS: LYRICA 50 MG PO ×2 (11:54→17:22)
--- NOTE | 2023-12-22 14:27 | W.PN.HOSP.TC ---
Addendum entered and electronically signed by Maxime Hicks MD 12/22/23 14:53:
#Most likely underlying dementia
-confirmed by Dr. Andino that there may bee component of this
-f/u outpatient
Original Note:
Today's Communication/Plan
-
cont abx
f/u cultures
incentive karen, acapella
Assessment / Plan
Assessment / Plan
Physical Exam
General: Well Developed, Well Nourished, No Apparent Distress and Other (lethargic but easily arousable and following commands )
HEENT: NormoCephalic and Anicteric
Respiratory: Other (symmetric AE ); No Wheezes or Rhonchi
Cardiac: S1/S2 and Regular Rhythm
Breast: Deferred by me
GI: Soft, Non Tender, Non Distended and Normal Bowel Sounds
Genito-urinary: Deferred by me
Musculoskeletal: Edema, Left Lower Extremity (mild ) and Edema, Right Lower Extremity (mild )
Skin: Warm and Dry
Neuro: Other (lethargic but easily arousable )
Hematologic/Lymphatic: Other
Psych: Other (lethargic )
CXR suggestive of Rt LLL PNA -
Hypoxia, back to baseline
-F/u blood cultures, sputum cultures if expectorating
-Cont cefepime, azithro
-f/u MRSA neg - dc vanc
- cont. 3 L NC O2
-duonebs
-Speech eval
-Dr. Andino patient outpatient, desired to have him off steroids due to compression fx and sequelae of chronic steroid use; if no improvement in status, can consider pulm consult tomorrow
-incentive spirio, acapella
HX COPD/ IL Dx on chr Home O2 (3L) on chronic azithromax on MWF
has been off prednisone x 1 week- remain off
-no active wheezing at this time, and with suspicion of bacterial infection - will cont to hold
B/L Acacia intermittent edema
HX LVEF 55- 60
- euvolemic
- cont . PO Lasix for now
Progressive weakness:
DDX; PNA, Cessation of chr prednisone
- PT/OT
- Fall precaution
- Treat PNA
HX Syncope on last admission
HX Known T12 comp fx:
Other problems:
Coronary artery disease:� cont ASA/statin
Peripheral Neuropathy: cont Lyrica
Essential hypertension:
GERD: on PPI
Hyperlipidemia: cont statin
DVT Px: LMWH
Code: Full
Anticipated Discharge: 24 - 48 hours
Subjective/Interval History
-
Date of Service: December 22, 2023
States feels better today
Objective Data
-
Labs:
Laboratory Results
12/22/23
05:33
WBC 11.8 H
Hgb 11.1 L
Hct 34.0 L
Plt Count 220
Sodium 136
Potassium 3.5
Chloride 105
Carbon Dioxide 26
BUN 16
Creatinine 1.2
Glucose 105 H
Calcium 8.5
Total Bilirubin 1.1
AST 31
ALT 15
Alkaline Phosphatase 60
Vital Signs:
Vital Signs
Temp Pulse Resp BP Pulse Ox
97.7 F 103 16 119/62 98
12/22/23 07:43 12/22/23 11:38 12/22/23 11:38 12/22/23 07:43 12/22/23 11:38
I&O
12/21/23 12/22/23 12/23/23
06:59 06:59 06:59
Intake Total 240 / 240
Output Total 1250 / 1250
Balance -1010 / -1010
Review of Systems
-
History Source: Patient
All other systems: Not reviewed unless documented
Data Reviewed
-
Diagnostic Radiology: Image personally visualized and interpreted and Report Reviewed by me
CT Scan: Image personally visualized and interpreted and Report Reviewed by me
Labs: Labs Reviewed by me
[2023-12-22 15:39] VITALS: BP 98/68
[2023-12-22] MEDS: LOVENOX 40 MG SC (17:23)
[2023-12-22] MEDS: NORCO 5/325 1 TABLET PO (17:46)
[2023-12-22] MEDS: ZITHROMAX 500 MG PO (20:41)
[2023-12-22] MEDS: LIPITOR 10 MG PO (20:42)
[2023-12-22] MEDS: TYLENOL 500 MG PO (22:41)
[2023-12-22 22:57] VITALS: BP 108/60
[2023-12-23] MEDS: DUONEB 3 ML INH ×5 (03:45→19:34)
[2023-12-23] MEDS: TYLENOL 500 MG PO ×2 (04:23→07:22)
[2023-12-23 05:58] VITALS: BMI 30.9
[2023-12-23] MEDS: LYRICA 100 MG PO ×2 (07:10→19:58)
[2023-12-23] MEDS: LASIX 20 MG PO (07:10)
[2023-12-23] MEDS: ASPIR LOW (ENTERIC COATED) 81 MG PO (07:11)
[2023-12-23] MEDS: RESTASIS 0.05% OPHTHALMIC EMULSION 1 DROPS BOTH EYES ×2 (07:11→19:58)
[2023-12-23] MEDS: MAXIPIME 2000 MG IV ×3 (07:12→23:04)
[2023-12-23] MEDS: STERILE WATER FOR INJECTION 10 ML IV ×3 (07:12→23:04)
[2023-12-23 07:28] LABS: Hemoglobin 11.1 g/dL (13.0-18.0); Mean Corp Hgb Conc. 32.6 g/dL (33.0-37.0); Mean Corpuscular Hgb 29.5 pg (27.0-31.0); Mean Corpuscular Volume 90.4 fL (80.0-94.0); Platelet Count 226 10^3/uL (130-400); Red Blood Cell Count 3.76 10^6/uL (4.70-6.10); Red Cell Dist. Width 14.5 % (11.5-14.5); White Blood Cell Count 13.3 10^3/uL (4.8-10.8)
[2023-12-23 07:54] VITALS: BP 111/69
[2023-12-23 08:09] LABS: ALT (SGPT) 16 U/L (0-50); AST (SGOT) 31 U/L (17-59); Albumin 3.1 g/dl (3.5-5.0); Alkaline Phosphatase 63 U/L (38-126); Blood Urea Nitrogen 16 mg/dl (9-20); Calcium 8.5 mg/dl (8.4-10.2); Carbon Dioxide 25 mmol/L (22-30); Chloride 104 mmol/L (98-107); Estimated Creatinine Clearance 53 ml/min; Glucose 110 mg/dl (70-99); Potassium 3.5 mmol/L (3.5-5.1); Sodium 135 mmol/L (135-145); Total Bilirubin 1.2 mg/dl (0.2-1.3); Total Protein 5.7 g/dl (6.3-8.2); eGFR > 60.00
[2023-12-23] MEDS: LYRICA 50 MG PO ×2 (11:31→17:43)
[2023-12-23 13:10] VITALS: BP 109/86; PULSE 113; O2SAT 93
--- NOTE | 2023-12-23 13:58 | CON.PUL ---
Consultation
Consultation Request
Date/Time Consultation Requested: 12/23/2023
Date/Time Consultation Performed: 12/23/2023
Reason for Consultation: Hypoxia, interstitial disease
Medical History
-
History of Present Illness:
History obtained from the patient, at bedside, reviewing hospital records and outpatient records. 83-year-old male with history of chronic interstitial lung disease, on steroids for the past few years. Patient has been recently taken off
steroids, has had issues with osteoporosis and compression fractures. Patient did stop 4 days prior, but developed increased weakness, could not get up. Per , this is been going on longer than 12/19/2023, probably for the last week or so.
Patient denies any falls but does walk up 5 steps at home. He was brought to [facility] where upon arrival, afebrile, pulse 101, breathing at 22, blood pressure 110/72, 96%. Chest x-ray revealed significant bilateral interstitial changes.
Patient was given azithromycin/ceftriaxone, transitioned to vancomycin, Zosyn during hospital stay. Patient feels that symptoms have improved since hospital stay, has been off steroids during hospital stay. We are asked to comment on his pulmonary
process 12/23/2023
Patient denies nausea, abdominal pain, diarrhea. He uses 3 L of oxygen at home. He coughs occasionally with eating and drinking denies tushar choking. Has had chronic back pain, secondary to osteoporosis, compression fractures. is present to
corroborate
PMH: Hypertension, interstitial lung disease/pulmonary fibrosis, chronic cough, GERD, coronary disease, allergic rhinitis, bronchiectasis, history of TIA 2019 with dysarthria/facial numbness, hyperlipidemia, history of COVID July 2022,
compression fractures, history of NSVT. 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
Past Medical History
Past Medical History: None (See above)
Past Surgical History: None (See above)
Social History
Tobacco: Former Smoker (Less than [id number] history quit 1974)
Alcohol: Occasional
Drug: None
Personal:
Living: With Family
Employment: Retired (Worked in the [employer], asbestos exposure)
Family History
Family History: Other (Daughter from glioblastoma age 58. 1 daughter with Colin's granulomatosis, another daughter with mixed connective tissue disease. 1 brother from lung cancer age 89)
Allergies / Home Medications
Allergies
Allergy/AdvReac Type Severity Reaction Status Date / Time
hydromorphone HCl Allergy Itching Verified 12/20/23 16:35
[From Dilaudid]
Home Medications
Medication Instructions Recorded Confirmed Last Taken Type
simvastatin 20 mg tablet 20 mg PO HS High cholesterol 10/25/10 12/20/23 12/19/23 History
acetaminophen 500 mg tablet 500 mg PO BID PRN mild pain 02/11/20 12/20/23 04/04/21 History
(Tylenol Extra Strength)
aspirin 81 mg tablet,delayed 81 mg PO DAILY Blood clot 02/11/20 12/20/23 12/20/23 History
release prevention/tx
cyclosporine 0.05 % eye drops in a 1 drp BOTH EYES BID Eye condition 02/11/20 12/20/23 12/20/23 History
dropperette (Restasis)
multivitamin with folic acid 400 1 tab PO DAILY Supplement 02/11/20 12/20/23 12/20/23 History
mcg tablet (Tab-A-Jose)
omega 1-ccs-rsa-fish oil 300 1 ea PO DAILY Supplement 02/11/20 12/20/23 12/20/23 History
mg-1,000 mg capsule (Fish Oil)
omeprazole 20 mg capsule,delayed 20 mg PO DAILY@1200 02/11/20 12/20/23 12/20/23 History
release Gastrointestinal issue
vit C 250 mg-vit E 90 mg-zinc 40 1 ea PO DAILY Supplement 02/11/20 12/20/23 12/20/23 History
mg-copper 1 [id number]
capsule (PreserVision AREDS-2)
calcium citrate 315 mg-vitamin D3 1 tab PO DAILY Supplement 09/18/23 12/20/23 12/20/23 History
5 mcg (200 unit) tablet (Calcium
Citrate + D)
carboxymethylcellulose sodium 0.5 1 drp BOTH EYES TID Eye Condition 09/18/23 12/20/23 12/20/23 History
% eye drops in a dropperette
(Refresh Plus)
flaxseed oil 1,000 mg capsule 1,000 mg PO DAILY Supplement 09/18/23 12/20/23 12/20/23 History
pregabalin 100 mg capsule 100 mg PO BID@1200,1800 NEUROPATHY 09/18/23 12/20/23 12/20/23 12:00 History
pregabalin 100 mg capsule 200 mg PO AMHS NEUROPATHY 09/18/23 12/20/23 12/20/23 History
azithromycin 250 mg tablet 250 mg PO MOWEFR COPD EXACERBATION 12/20/23 12/20/23 12/20/23 History
furosemide 20 mg tablet 20 mg PO DAILY EDEMA 12/20/23 12/20/23 12/20/23 History
hydrocodone 5 mg-acetaminophen 325 1 tab PO Q6H PRN moderate pain 12/20/23 12/20/23 Unknown History
mg tablet
prednisone 5 mg tablet 5 mg PO QPM COPD EXACERBATION 12/20/23 12/20/23 12/19/23 History
Review of Systems
-
All other systems: Negative unless noted
Vitals / Labs / Diagnostic Testing
Vital Signs
Temp Pulse Resp BP Pulse Ox
97.9 F 88 15 111/69 88
12/23/23 07:15 12/23/23 11:16 12/23/23 11:16 12/23/23 07:54 12/23/23 07:54
Lab Data
12/23/23 07:06
12/23/23 07:06
Microbiology
12/20/23 20:16 Blood/Venous Blood Culture - Preliminary
No Growth in 48 hours- Final report to follow
12/20/23 20:16 Blood/Venous Blood Culture - Preliminary
No Growth in 48 hours- Final report to follow
12/21/23 21:29 Nose Nasal Screen MRSA (PCR) - Final
MRSA not detected - performed by PCR methodology.
12/22/23 03:32 Urine Legionella Urinary Antigen - Final
Negative for Legionella pneumophila Serogroup 1 antigen.
A negative result does not rule out the possiblity of
Legionella infection due to other serogroups or species of
Legionella. Clinical correlation is recommended.
12/22/23 03:32 Urine Streptococcus pneumoniae Antigen (M - Final
Negative for Streptococcus pneumoniae antigen.
A negative result does not exclude infection with
Streptococcus pneumoniae. Clinical correlation is
recommended.
12/20/23 17:38 Nasal Swab Influenza Types A & B (TOMMIE) - Final
Negative for Influenza A & B, NAAT
Negative results must be combined with clinical observations
and patient history.
Nucleic Acid Amplification test (NAAT)performed on the
[employer] platform.
Diagnostic Testing:
Physical Exam
-
HEENT: Normocephalic and Anicteric
Cardiovascular: S1/S2, Regular Rhythm (Tachycardic), Murmur (n), Peripheral Edema (1+) and Calf Tenderness
Respiratory: Wheeze (n), Rales (Bilateral crackles, third of the way up) and Rhonchi ( mild with attempts to sit up)
GI: Soft, Non Distended and Non Tender
Neurology: Awake, Alert, Oriented and No Motor Deficits (Generally weak, left leg off bed but cannot lift with resistance)
Skin: Other (Few scattered bruising) and Other (Mild pallor)
General: Comfortable
Assessment
-
83-year-old male with history of pulmonary fibrosis/interstitial lung disease on prednisone therapy for the past few years, recently weaned off around 12/15/2023, compression fracture/osteoporosis, family history of vasculitis (both daughters),
presents with weakness, fatigue chest x-ray suggest possible pneumonia on top of progressive interstitial disease. We are asked to comment on his pulmonary process 12/23/2023
Generalized weakness, difficulty standing up
X 4 days preadmission
Chronic steroid therapy since 2021, weaned off 12/15/2023
Possible component of adrenal insufficiency
Progressive bilateral interstitial disease
TLC 64%, DLCO 40%
Progressive fibrosis/pneumonitis vs pneumonia
Negative procalcitonin
Traction bronchiectasis
ILD workup negative, bronchoscopy negative
Intolerant to antifibrotic therapy (Ofev)
Improvement on vital capacity with steroid therapy in the past
Mild leukocytosis
Chronic hypoxia, on home oxygen
3 L
Osteoporosis, compression fractures
Conditions present prior to admission
Hypertension/hyperlipidemia
GERD
Chronic rhinitis
Family history of vasculitis
1 daughter with Colin's granulomatosis
1 daughter with mixed connective tissue disease
Family history of lung cancer (brother)
Asbestos exposure history
[id number] history of smoking quit 1974
Plan/recommendations
At this time, patient states he is about 70% better since admission with regards to strength
However, he still appears to be profoundly fatigued, weak. Tachycardia with simple attempts to sit up
Movement limited by chronic back pain, compression fractures
Intolerant t antifibrotic therapy
Appears to have some form of steroid responsive process in the past per reviewing outpatient records
Moving forward
Low threshold to transition to oral antibiotic
Procalcitonin negative, difficult to differentiate between infectious process and not infectious process. Doubt heart failure
Check chest x-ray 12/23
Although patient states he is 70% improved with antibiotics, suspect progressive interstitial disease in the setting of steroid taper/off
Options are limited at this time.
If chest x-ray shows improvement without steroid therapy in the last 1 week, will plan to continue antibiotics
If chest x-ray without any improvement, consider empiric steroid therapy as there may be component of steroid insufficiency
Check orthostatics
Continue GERD therapy
Outpatient osteoporosis therapy. Patient scheduled to see rheumatology
Complex decision making process
Reviewed with patient, at bedside
Will follow
--- NOTE | 2023-12-23 14:57 | W.PN.HOSP.TC ---
Today's Communication/Plan
-
continue abx
pulm eval
Assessment / Plan
Assessment / Plan
Chronic hypoxic respiratory failure
Exertional dyspnea
- currently on 3 L NC o2 for now
- CXR reviewed and increased infiltrate/worsening for ILD
- Minimal leukocytosis, procalcitonin neg.
- currently on cefepime and azithromycin, continue
- ST eval pending
Interstitial lung disease
COPD
- f/us with claims investigator office dr Andino
- patient have been tried to be weaned off of steroids
- pulmonology asked to evaluate for possible need of reinitiation of steroid trial
B/L Acacia intermittent edema
Chronic diastolic HF
- euvolemic, no signs of exacerbation
- cont . PO Lasix for now
Generalized weakness
- PT/OT
- Fall precaution
- Treat PNA
HX Syncope on last admission
HX Known T12 comp fx
Coronary artery disease:� cont ASA/statin
Peripheral Neuropathy: cont Lyrica
Essential hypertension:
GERD: on PPI
Hyperlipidemia: cont statin
DVT Px: LMWH
Code: Full
Anticipated Discharge: 24 - 48 hours
Subjective/Interval History
-
Date of Service: December 23, 2023
continues to have shortness breath
remains on o2 through NC
Objective Data
-
Labs:
Laboratory Results
12/23/23
07:06
WBC 13.3 H
Hgb 11.1 L
Hct 34.0 L
Plt Count 226
Sodium 135
Potassium 3.5
Chloride 104
Carbon Dioxide 25
BUN 16
Creatinine 1.1
Glucose 110 H
Calcium 8.5
Total Bilirubin 1.2
AST 31
ALT 16
Alkaline Phosphatase 63
Vital Signs:
Vital Signs
Temp Pulse Resp BP Pulse Ox
97.9 F 88 15 111/69 88
12/23/23 07:15 12/23/23 11:16 12/23/23 11:16 12/23/23 07:54 12/23/23 07:54
I&O
12/22/23 12/23/23 12/24/23
06:59 06:59 06:59
Intake Total 240 / 240 350 / 350
Output Total 1250 / 1250
Balance -1010 / -1010 350 / 350
Review of Systems
-
Respiratory: Reports Cough, Trouble Breathing and Wheezing; Denies Hemoptysis
Cardiac: Reports No Symptoms
Abdomen/GI: Reports No Symptoms
Physical Exam
-
General: No Apparent Distress and Comfortable
HEENT: Oxygen
Respiratory: Wheezes and Crackles
Cardiac: Regular Rhythm and S1/S2; Negative Murmur
GI: Soft and Nontender
Musculoskeletal: No Edema
Neuro: Awake, Alert, Oriented, No Motor Deficits and Nonfocal/Grossly Intact
Psych: Calm
[2023-12-23 15:55] VITALS: BP 146/63
[2023-12-23 16:15] LABS: Glucose - Point of Care 121 mg/dl (70-99)
--- NOTE | 2023-12-23 16:20 | CM ---
media production manager reviewed patients chart, and patient[facility] physician [facility]
Plan; To follow with patient progress.
--- NOTE | 2023-12-23 16:24 | W.PN.UPDATE ---
Update Note
Progress Note Update
Patient getting progressive hypoxic
was started on midflow 15 L with o2 sat in 70s
RR was called
stat ABG ordered
Patient to be moved to IMU
with venti mask patient spo2 came to 90%
EKG reviewed - lot of artifact.
Discussed with pulmo - starting trial of steroids
Discussed guarded prognosis with spouse at bedside. I have recommended against intubation if required - remains full code , will continue discussion.
Total time spent : 35 misn
--- NOTE | 2023-12-23 16:30 | RR ---
A Rapid Response was called on this patient, please see Rapid Response form.
Patient short of breath with 6L of midflow O2 s/p nebulizer treatment. SpO2 reading in the 70s. Patient reports feeling nauseous and generally feeling unwell. MD Limon notified, oxygen increased to 15L midflow, SpO2 85%. MD Limon at bedside, rapid
response called. Patient placed on 15L via NRB mask, SpO2 increased to 90s. ECG and ABG obtained. Patient transferred to IMU per MD orders. Patient alert and talking throughout rapid response.
[2023-12-23 16:35] LABS: B.E. 1.4 mmol/L; HCO3 24.9 mmol/L (21-28); O2 Saturation % 97.4 % (94-98); PCO2 35 mmHg (35-48); PO2 77 mmHg (83-108); pH 7.46 (7.35-7.45)
--- NOTE | 2023-12-23 17:15 | PTCARENOTE ---
Received patient from 4th floor on nonrebreather sp02 93%. Patient awake and alert. Very [place]. [employer] of urine in brief. Lungs diminished, crackles at right base. ST on monitor heart rate 120's. Patient oral temp 100. Oriented patient to room.
[2023-12-23] MEDS: DECADRON 10 MG IV (17:20)
[2023-12-23] MEDS: FLUSH (NSS) 1 FLUSH IV ×2 (17:22→17:51)
[2023-12-23] MEDS: NORCO 5/325 1 TABLET PO (17:41)
[2023-12-23] MEDS: LOVENOX 40 MG SC (17:50)
[2023-12-23 18:00] VITALS: BP 112/66
--- NOTE | 2023-12-23 18:30 | PTCARENOTE ---
Patient now on 15L of midflow sp02 90-93%. Family in room at bedside. Nursing update provide.
[2023-12-23] MEDS: ZITHROMAX 500 MG PO (19:58)
[2023-12-23] MEDS: LIPITOR 10 MG PO (19:58)
[2023-12-23 20:00] VITALS: BP 117/75
--- NOTE | 2023-12-23 20:47 | PTCARENOTE ---
Received pt from joanna RN. Family at bedside. Pt is AAOx3, TAZLINA, forgetful. Sinus tach on the monitor. On 15L midflow O2 sat 91%, lungs diminished, crackles in the right, tachypneic. Incont, attends in place. Mouth care provided. Pt is laying
comfortable in bed with call richardson in reach.
[2023-12-23 22:00] VITALS: BP 132/72
[2023-12-23] MEDS: DECADRON 4 MG IV (23:04)
[2023-12-24] VITALS (12 sets, daily range): BP systolic 97–143; BP diastolic 65–94
[2023-12-24 03:39] LABS: Hematocrit 35.5 % (39.0-52.0); Hemoglobin 12.1 g/dL (13.0-18.0); Mean Corp Hgb Conc. 34.1 g/dL (33.0-37.0); Mean Corpuscular Hgb 29.7 pg (27.0-31.0); Mean Corpuscular Volume 87.2 fL (80.0-94.0); Mean Platelet Volume 9.8 fL (7.4-10.4); Platelet Count 237 10^3/uL (130-400); Red Blood Cell Count 4.07 10^6/uL (4.70-6.10); Red Cell Dist. Width 14.2 % (11.5-14.5); White Blood Cell Count 10.7 10^3/uL (4.8-10.8)
[2023-12-24 04:31] LABS: ALT (SGPT) 21 U/L (0-50); AST (SGOT) 39 U/L (17-59); Albumin 3.2 g/dl (3.5-5.0); Alkaline Phosphatase 81 U/L (38-126); Blood Urea Nitrogen 24 mg/dl (9-20); Calcium 9.2 mg/dl (8.4-10.2); Carbon Dioxide 26 mmol/L (22-30); Chloride 103 mmol/L (98-107); Estimated Creatinine Clearance 53 ml/min; Glucose 180 mg/dl (70-99); Potassium 4.3 mmol/L (3.5-5.1); Sodium 139 mmol/L (135-145); Total Bilirubin 0.6 mg/dl (0.2-1.3); eGFR > 60.00
--- NOTE | 2023-12-24 07:05 | W.PN.PUL3 ---
Today's Communication / Plan
-
Continue with IV steroids, no change
GERD Rx
ABX will continue
Address code status
Assessment
-
83-year-old male with history of pulmonary fibrosis/interstitial lung disease on prednisone therapy for the past few years, recently weaned off around 12/15/2023, compression fracture/osteoporosis, family history of vasculitis (both daughters),
presents with weakness, fatigue chest x-ray suggest possible pneumonia on top of progressive interstitial disease. We are asked to comment on his pulmonary process 12/23/2023
Acute hypoxic resp insufficiency, requiring midflow/NRB
tx to IMU on 12/23/23
steroids started 12/23/23
Generalized weakness, difficulty standing up
X 4 days preadmission
Chronic steroid therapy since 2021, weaned off 12/15/2023
Possible component of adrenal insufficiency
Progressive bilateral interstitial disease
TLC 64%, DLCO 40%
Progressive fibrosis/pneumonitis vs pneumonia
Negative procalcitonin
Traction bronchiectasis
ILD workup negative, bronchoscopy negative
Intolerant to antifibrotic therapy (Ofev)
Improvement on vital capacity with steroid therapy in the past
Mild leukocytosis
Chronic hypoxia, on home oxygen
3 L
Osteoporosis, compression fractures
Conditions present prior to admission
Hypertension/hyperlipidemia
GERD
Chronic rhinitis
Family history of vasculitis
1 daughter with Colin's granulomatosis
1 daughter with mixed connective tissue disease
Family history of lung cancer (brother)
Asbestos exposure history
[id number] history of smoking quit 1974
Plan/recommendations
At this time, patient remains critical with significant oxygen requirement
CXR without sig change
muscle strength better this am
Pt is conversant
Intolerant to antifibrotic therapy as op
Appears to have some form of steroid responsive process in the past per reviewing outpatient records
FVC improved with steroids in the past
Moving forward
continue with IV steroids, Azithromycin/Cefepime will continue
Procalcitonin negative, Doubt heart failure
ABG confirms hypoxia
I reviewed with pt this am. He wishes not to be on ventilator given pulmonary fibrosis
This will need to be confirmed with discussion with
Continue GERD therapy
Outpatient osteoporosis therapy. Patient scheduled to see rheumatology
Complex decision making process
Remains high risk situation
Subjective Data
-
Date of Service:
Date of Service: December 24, 2023
Subjective:
Pt tx to IMU last pm. This morning on NRB and midflow, 97%. denies cp, N, V. Has mild cough. Seems stronger today
Objective Data
Data Reviewed
Vital Signs / I&O / Oxygen:
Vital Signs
Temp Pulse Resp BP Pulse Ox
97.6 F 98 21 131/87 93
12/24/23 03:59 12/24/23 06:00 12/24/23 06:00 12/24/23 06:00 12/24/23 06:23
Intake and Output
12/23/23 12/24/23 12/25/23
06:59 06:59 06:59
Intake Total 350 / 350 450 / 450
Balance 350 / 350 450 / 450
SaO2 93
Nasal Cannula flow liters per 15
minute
Physical Exam
General: Comfortable
HEENT: Normocephalic and Anicteric
Cardiovascular: S1-S2, Regular Rhythm, Murmur (n), Rub (n), Peripheral Edema (tr) and Calf Tenderness (n)
Respiratory: Wheeze (n), Crackles (few at base), Rhonchi (n), Non-Labored Respirations and Stridor (n)
GI: Soft, Non Distended and Non Tender
Neurology: Awake, Alert and No Motor Deficits (better muscle strength)
Skin: Good Color (mild pallor) and Cyanosis
Labs/Micro/Reports
Lab Data
12/24/23 03:20
12/24/23 03:20
Laboratory Results
12/23/23
16:24
pH 7.46 H
pCO2 35
pO2 77 L
HCO3 24.9
O2 Delivery Level
Microbiology
12/20/23 20:16 Blood/Venous Blood Culture - Preliminary
No Growth in 72 hours- Final report to follow
12/20/23 20:16 Blood/Venous Blood Culture - Preliminary
No Growth in 72 hours- Final report to follow
12/21/23 21:29 Nose Nasal Screen MRSA (PCR) - Final
MRSA not detected - performed by PCR methodology.
12/22/23 03:32 Urine Legionella Urinary Antigen - Final
Negative for Legionella pneumophila Serogroup 1 antigen.
A negative result does not rule out the possiblity of
Legionella infection due to other serogroups or species of
Legionella. Clinical correlation is recommended.
12/22/23 03:32 Urine Streptococcus pneumoniae Antigen (M - Final
Negative for Streptococcus pneumoniae antigen.
A negative result does not exclude infection with
Streptococcus pneumoniae. Clinical correlation is
recommended.
[2023-12-24] MEDS: DUONEB 3 ML INH ×4 (07:48→20:11)
[2023-12-24] MEDS: RESTASIS 0.05% OPHTHALMIC EMULSION 1 DROPS BOTH EYES ×2 (08:09→20:18)
[2023-12-24] MEDS: LYRICA 100 MG PO ×2 (08:10→20:18)
[2023-12-24] MEDS: LASIX 20 MG PO (08:10)
[2023-12-24] MEDS: DECADRON 4 MG IV ×2 (08:10→15:23)
[2023-12-24] MEDS: ASPIR LOW (ENTERIC COATED) 81 MG PO (08:10)
[2023-12-24] MEDS: MAXIPIME 2000 MG IV ×2 (08:12→15:23)
[2023-12-24] MEDS: STERILE WATER FOR INJECTION 10 ML IV ×2 (08:13→15:23)
[2023-12-24] MEDS: MIRALAX 17 GRAMS PO (10:22)
[2023-12-24] MEDS: SENNA SYRUP 8.80000000000000071 MG PO (10:22)
[2023-12-24] MEDS: LYRICA 50 MG PO ×2 (12:40→17:00)
[2023-12-24] MEDS: NOVOLOG FLEXPEN-LOW RESISTANCE SC ×2 (12:48→18:04)
[2023-12-24 13:00] LABS: Glucose - Point of Care 134 mg/dl (70-99)
--- NOTE | 2023-12-24 14:54 | CM ---
Patient with Dx Acute hypoxic resp insufficiency, pneumonitis vs pneumonia. Rapid response yesterday and transfered to IMU. from O2 15 L midflow. Receiving IV Abx & IV steroids. PT & OT 12/22; requires assist of 2, max assist for transfers,
recommendation skilled rehab, PT/OT held today. Per nurse assessment; forgetful.
CM continuing to follow for d/c needs. Discharge plans will depend on the patient's progress.
Plan TBD.
[2023-12-24] MEDS: PROTONIX 40 MG PO (15:23)
--- NOTE | 2023-12-24 16:30 | W.PN.HOSP.TC ---
Today's Communication/Plan
-
continue steroids
repeat ekg in am
change azithromycin to doxycycline
Assessment / Plan
Assessment / Plan
Acute on Chronic hypoxic respiratory failure
Exertional dyspnea
- currently on 3 L NC o2 for now
- CXR reviewed and increased infiltrate/worsening for ILD
- Minimal leukocytosis, procalcitonin neg.
- currently on cefepime and azithromycin . Changed to doxycycline due to QTc prolongation
- Rapid response was called on 12/22 for worsening hypoxia - repeat CXR showed worsening infiltrates - started on IV steroids after discussion with pulmonology - moved to IMU
- Remains on mid flow/Ventimask, wean off oxygen as possible
Interstitial lung disease
COPD
- f/us with cadastral engineer office dr Andino
- patient have been tried to be weaned off of steroids OP basis.
- pulmonology asked to evaluate for possible need of reinitiation of steroid trial
B/L Acacia intermittent edema
Chronic diastolic HF
- euvolemic, no signs of exacerbation
- cont . PO Lasix for now
Generalized weakness
- Fall precaution
-Currently have very minimal reserve and will hold on PT OT evaluation today
HX Syncope on last admission
HX Known T12 comp fx
Coronary artery disease:� cont ASA/statin
Peripheral Neuropathy: cont Lyrica
Essential hypertension:
GERD: on PPI
Hyperlipidemia: cont statin
DVT Px: LMWH
Code: DNR/DNI - patient agreeable after discussion.
Case discussed with pulmonology
Total time spent : 52 mins
I personally saw and examined the patient.
I have reviewed all diagnostic interpretations and treatment plans as written.
Time includes patient management by me, time spent at the patients bedside, time to review lab and imaging results, discussing patient care, documentation in the medical record, and time spent with the family or caregiver and discussing care plan
with RN/Consultants.
Anticipated Discharge: > 48 hours
Subjective/Interval History
-
Date of Service: December 24, 2023
remains hypoxic requiring venti mask/midflow
Objective Data
-
Labs:
Laboratory Results
12/24/23
03:20
Sodium 139
Potassium 4.3
Chloride 103
Carbon Dioxide 26
BUN 24 H
Creatinine 1.1
Glucose 180 H
Calcium 9.2
Total Bilirubin 0.6
AST 39
ALT 21
Alkaline Phosphatase 81
Vital Signs:
Vital Signs
Temp Pulse Resp BP Pulse Ox
98.7 F 98 22 143/73 88
12/24/23 15:13 12/24/23 12:00 12/24/23 12:00 12/24/23 08:10 12/24/23 12:00
I&O
12/23/23 12/24/23 12/25/23
06:59 06:59 06:59
Intake Total 350 / 350 450 / 450
Balance 350 / 350 450 / 450
Review of Systems
-
Respiratory: Reports No Symptoms
Cardiac: Reports No Symptoms
Abdomen/GI: Reports No Symptoms
Physical Exam
-
General: No Apparent Distress and Comfortable
HEENT: Oxygen
Respiratory: Wheezes and Crackles
Cardiac: Regular Rhythm and S1/S2; Negative Murmur
GI: Soft and Nontender
Musculoskeletal: No Edema
Neuro: Awake, Alert, Oriented, No Motor Deficits and Nonfocal/Grossly Intact
Psych: Calm
[2023-12-24] MEDS: LOVENOX 40 MG SC (17:00)
[2023-12-24 18:14] LABS: Glucose - Point of Care 132 mg/dl (70-99)
[2023-12-24] MEDS: VIBRAMYCIN 100 MG PO (20:18)
[2023-12-24] MEDS: LIPITOR 10 MG PO (20:18)
[2023-12-24] MEDS: TUMS 2 TABLET PO (20:18)
--- NOTE | 2023-12-24 20:26 | PTCARENOTE ---
Received pt from joanna RN. Pt was on 15L midflow + NRB. RT gave pt a treatment, pt O2 sat dropped when NRB was removed. Pt placed on 55L 100% highflow O2 sat 94%. Pt c/o heartburn, PRN Tums given (see MAR). Pt with soft, loose stools hygiene
provided. Pt is laying comfortable in bed with call richardson in reach.
[2023-12-24 22:55] LABS: Glucose - Point of Care 153 mg/dl (70-99)
[2023-12-25] VITALS (14 sets, daily range): BP systolic 117–166; BP diastolic 70–97; PULSE 90; O2SAT 92–94
[2023-12-25] MEDS: STERILE WATER FOR INJECTION 10 ML IV ×3 (00:04→17:14)
[2023-12-25] MEDS: MAXIPIME 2000 MG IV ×3 (00:04→17:14)
[2023-12-25] MEDS: DECADRON 4 MG IV ×3 (00:04→17:13)
[2023-12-25 01:46] LABS: Mycoplasma pneumoniae-IgM 0.07 U/L (<=0.76)
[2023-12-25 03:46] LABS: Hematocrit 32.3 % (39.0-52.0); Mean Corp Hgb Conc. 34.1 g/dL (33.0-37.0); Mean Corpuscular Hgb 29.4 pg (27.0-31.0); Mean Corpuscular Volume 86.4 fL (80.0-94.0); Platelet Count 280 10^3/uL (130-400); Red Blood Cell Count 3.74 10^6/uL (4.70-6.10); Red Cell Dist. Width 14.2 % (11.5-14.5); White Blood Cell Count 15.8 10^3/uL (4.8-10.8)
[2023-12-25 04:05] LABS: ALT (SGPT) 46 U/L (0-50); AST (SGOT) 107 U/L (17-59); Albumin 3.1 g/dl (3.5-5.0); Alkaline Phosphatase 83 U/L (38-126); Blood Urea Nitrogen 38 mg/dl (9-20); Calcium 9.6 mg/dl (8.4-10.2); Carbon Dioxide 24 mmol/L (22-30); Chloride 101 mmol/L (98-107); Estimated Creatinine Clearance 59 ml/min; Glucose 152 mg/dl (70-99); Potassium 3.8 mmol/L (3.5-5.1); Sodium 136 mmol/L (135-145); Total Bilirubin 0.5 mg/dl (0.2-1.3); Total Protein 5.8 g/dl (6.3-8.2); eGFR > 60.00
--- NOTE | 2023-12-25 06:53 | W.PN.PUL3 ---
Today's Communication / Plan
-
No change in IV steroid dose
Continue IV antibiotics for now
Empiric GERD therapy
DVT prophylaxis
Add vitamin D, calcium
Outpatient management of osteoporosis, sees rheumatology
Consider follow-up chest x-ray 12/26
Assessment
-
83-year-old male with history of pulmonary fibrosis/interstitial lung disease on prednisone therapy for the past few years, recently weaned off around 12/15/2023, compression fracture/osteoporosis, family history of vasculitis (both daughters),
presents with weakness, fatigue chest x-ray suggest possible pneumonia on top of progressive interstitial disease. We are asked to comment on his pulmonary process 12/23/2023
Acute hypoxic resp insufficiency, requiring midflow/NRB
tx to IMU on 12/23/23
steroids started 12/23/23
Generalized weakness, difficulty standing up
X 4 days preadmission
Chronic steroid therapy since 2021, weaned off 12/15/2023
Possible component of adrenal insufficiency
Progressive bilateral interstitial disease
TLC 64%, DLCO 40%
Progressive fibrosis/pneumonitis vs pneumonia
Negative procalcitonin
Traction bronchiectasis
ILD workup negative, bronchoscopy negative
Intolerant to antifibrotic therapy (Ofev)
Improvement on vital capacity with steroid therapy in the past
Mild leukocytosis
Chronic hypoxia, on home oxygen
3 L
Osteoporosis, compression fractures
Conditions present prior to admission
Hypertension/hyperlipidemia
GERD
Chronic rhinitis
Family history of vasculitis
1 daughter with Colin's granulomatosis
1 daughter with mixed connective tissue disease
Family history of lung cancer (brother)
Asbestos exposure history
[id number] history of smoking quit 1974
Plan/recommendations
At this time, patient remains critical with significant oxygen requirement, however appears to be somewhat improved
He is less fatigued, stronger on exam
CXR without sig change
muscle strength better this am
Pt is conversant
Intolerant to antifibrotic therapy as op
Appears to have some form of steroid responsive process in the past per reviewing outpatient records
FVC improved with steroids in the past
Currently on high flow 55 L / 100%, 95% saturation
Moving forward
continue with IV steroids, doxycycline/Cefepime will continue
Procalcitonin negative, Doubt heart failure
ABG confirms hypoxia
Will continue to wean oxygen as able
PT/OT, out of bed to chair with nonrebreather on top of high flow as able
Continue GERD therapy
Outpatient osteoporosis therapy. Patient scheduled to see rheumatology
Will need to add calcium/vitamin D, do not suspect steroids will be weanable in the future
Complex decision making process
Remains high risk situation
Will try to update later today
Patient is DNR
Subjective Data
-
Date of Service:
Date of Service: December 25, 2023
Subjective:
Patient presently on high flow. Denies chest pain. Has mild productive cough, denies hemoptysis. Denies nausea, abdominal pain
Objective Data
Data Reviewed
Vital Signs / I&O / Oxygen:
Vital Signs
Temp Pulse Resp BP Pulse Ox
97.3 F 80 22 138/73 92
12/25/23 04:19 12/25/23 06:01 12/25/23 06:01 12/25/23 06:01 12/25/23 06:01
Intake and Output
12/23/23 12/24/23 12/25/23
06:59 06:59 06:59
Intake Total 350 / 350 450 / 450 410 / 410
Balance 350 / 350 450 / 450 410 / 410
SaO2 92
Nasal Cannula flow liters per 55
minute
Physical Exam
General: Comfortable
HEENT: Normocephalic and Anicteric
Cardiovascular: S1-S2, Regular Rhythm, Murmur (n), Rub (n), Peripheral Edema (tr) and Calf Tenderness (n)
Respiratory: Wheeze (n), Crackles (Scattered anteriorly), Rhonchi (n), Non-Labored Respirations and Stridor (n)
GI: Soft, Non Distended and Non Tender
Neurology: Awake, Alert and No Motor Deficits (better muscle strength)
Skin: Good Color (mild pallor) and Cyanosis
Labs/Micro/Reports
Lab Data
12/25/23 03:27
12/25/23 03:27
Microbiology
12/20/23 20:16 Blood/Venous Blood Culture - Preliminary
No Growth in 4 days- Final report to follow
12/20/23 20:16 Blood/Venous Blood Culture - Preliminary
No Growth in 4 days- Final report to follow
12/24/23 18:17 Sputum Gram Stain - Preliminary
12/21/23 21:29 Nose Nasal Screen MRSA (PCR) - Final
MRSA not detected - performed by PCR methodology.
12/22/23 03:32 Urine Legionella Urinary Antigen - Final
Negative for Legionella pneumophila Serogroup 1 antigen.
A negative result does not rule out the possiblity of
Legionella infection due to other serogroups or species of
Legionella. Clinical correlation is recommended.
12/22/23 03:32 Urine Streptococcus pneumoniae Antigen (M - Final
Negative for Streptococcus pneumoniae antigen.
A negative result does not exclude infection with
Streptococcus pneumoniae. Clinical correlation is
recommended.
[2023-12-25] MEDS: DUONEB 3 ML INH ×4 (07:33→19:46)
[2023-12-25 08:31] LABS: Glucose - Point of Care 141 mg/dl (70-99)
[2023-12-25] MEDS: NOVOLOG FLEXPEN-LOW RESISTANCE SC (09:59)
[2023-12-25] MEDS: TUMS 2 TABLET PO ×2 (09:59→17:14)
[2023-12-25] MEDS: LYRICA 100 MG PO ×2 (10:01→20:26)
[2023-12-25] MEDS: LASIX 20 MG PO (10:01)
[2023-12-25] MEDS: RESTASIS 0.05% OPHTHALMIC EMULSION 1 DROPS BOTH EYES ×2 (10:01→20:26)
[2023-12-25] MEDS: OSCAL 500 + D 500 MG PO ×2 (10:02→20:26)
[2023-12-25] MEDS: ASPIR LOW (ENTERIC COATED) 81 MG PO (10:02)
[2023-12-25] MEDS: PROTONIX 40 MG PO (10:02)
[2023-12-25] MEDS: VIBRAMYCIN 100 MG PO ×2 (10:02→20:26)
[2023-12-25] MEDS: MIRALAX PO (10:10)
[2023-12-25] MEDS: FLUSH (NSS) 1 FLUSH IV (10:13)
[2023-12-25 12:18] LABS: Glucose - Point of Care 155 mg/dl (70-99)
[2023-12-25] MEDS: LYRICA 50 MG PO ×2 (12:37→18:29)
[2023-12-25] MEDS: NOVOLOG FLEXPEN-LOW RESISTANCE 1 UNITS SC ×2 (12:37→18:30)
--- NOTE | 2023-12-25 14:42 | W.PN.HOSP.TC ---
Today's Communication/Plan
-
continue wean off o2 as possible
maintain on steroids
Assessment / Plan
Assessment / Plan
Acute on Chronic hypoxic respiratory failure
Exertional dyspnea
- currently on 3 L NC o2 for now
- CXR reviewed and increased infiltrate/worsening for ILD
- Minimal leukocytosis, procalcitonin neg.
- currently on cefepime and azithromycin . Changed to doxycycline due to QTc prolongation
- Rapid response was called on 12/22 for worsening hypoxia - repeat CXR showed worsening infiltrates - started on IV steroids after discussion with pulmonology - moved to IMU
- Currently on high flow @ 50L/min o2, wean off as possible.
Interstitial lung disease
COPD
- f/us with folding machine setter office dr Andino
- patient have been tried to be weaned off of steroids OP basis.
- pulmonology asked to evaluate for possible need of reinitiation of steroid trial
B/L Acacia intermittent edema
Chronic diastolic HF
- euvolemic, no signs of exacerbation
- cont . PO Lasix for now
Generalized weakness
-Fall precaution
-Currently have very minimal reserve and will hold on PT OT evaluation today
HX Syncope on last admission
HX Known T12 comp fx
Coronary artery disease:� cont ASA/statin
Peripheral Neuropathy: cont Lyrica
Essential hypertension:
GERD: on PPI
Hyperlipidemia: cont statin
DVT Px: LMWH
Code: DNR/DNI - patient agreeable after discussion.
Remains high risk for compication/respiratory arrest and
Continue monitoring in imu
Anticipated Discharge: 24 - 48 hours
Subjective/Interval History
-
Date of Service: December 25, 2023
no issues overnight
remains on high flow o2
Objective Data
-
Labs:
Laboratory Results
12/25/23
03:27
WBC 15.8 H
Hgb 11.0 L
Hct 32.3 L
Plt Count 280
Sodium 136
Potassium 3.8
Chloride 101
Carbon Dioxide 24
BUN 38 H
Creatinine 1.0
Glucose 152 H
Calcium 9.6
Total Bilirubin 0.5
AST 107 H
ALT 46
Alkaline Phosphatase 83
Vital Signs:
Vital Signs
Temp Pulse Resp BP Pulse Ox
98.5 F 103 20 130/73 90
12/25/23 11:00 12/25/23 11:29 12/25/23 11:29 12/25/23 08:00 12/25/23 11:29
I&O
12/24/23 12/25/23 12/26/23
06:59 06:59 06:59
Intake Total 450 / 450 410 / 410
Balance 450 / 450 410 / 410
Review of Systems
-
Respiratory: Reports Cough
Cardiac: Reports No Symptoms
Abdomen/GI: Reports No Symptoms
Physical Exam
-
General: No Apparent Distress and Comfortable
HEENT: Oxygen
Respiratory: Wheezes and Other (High flow oxygen)
Cardiac: Regular Rhythm and S1/S2; Negative Murmur
GI: Soft and Nontender
Musculoskeletal: No Edema
Neuro: Awake, Alert, Oriented, No Motor Deficits and Nonfocal/Grossly Intact
Psych: Calm
[2023-12-25 17:20] LABS: Glucose - Point of Care 153 mg/dl (70-99)
[2023-12-25] MEDS: LOVENOX 40 MG SC (18:29)
[2023-12-25] MEDS: LIPITOR 10 MG PO (20:26)
[2023-12-25 22:20] LABS: Glucose - Point of Care 150 mg/dl (70-99)
[2023-12-26] VITALS (17 sets, daily range): BP systolic 107–140; BP diastolic 56–106; PULSE 103; O2SAT 91–93
[2023-12-26 04:34] LABS: Hematocrit 34.8 % (39.0-52.0); Hemoglobin 11.5 g/dL (13.0-18.0); Mean Corpuscular Hgb 29.4 pg (27.0-31.0); Mean Platelet Volume 9.9 fL (7.4-10.4); Platelet Count 305 10^3/uL (130-400); Red Blood Cell Count 3.91 10^6/uL (4.70-6.10); Red Cell Dist. Width 14.3 % (11.5-14.5); White Blood Cell Count 14.7 10^3/uL (4.8-10.8)
[2023-12-26 05:01] LABS: ALT (SGPT) 71 U/L (0-50); AST (SGOT) 99 U/L (17-59); Albumin 3.3 g/dl (3.5-5.0); Alkaline Phosphatase 92 U/L (38-126); Blood Urea Nitrogen 45 mg/dl (9-20); Calcium 9.6 mg/dl (8.4-10.2); Carbon Dioxide 24 mmol/L (22-30); Chloride 109 mmol/L (98-107); Estimated Creatinine Clearance 49 ml/min; Glucose 139 mg/dl (70-99); Potassium 4.1 mmol/L (3.5-5.1); Sodium 138 mmol/L (135-145); Total Bilirubin 0.7 mg/dl (0.2-1.3); eGFR 59.63
[2023-12-26] MEDS: DUONEB 3 ML INH ×4 (07:40→19:44)
[2023-12-26 08:18] LABS: Glucose - Point of Care 136 mg/dl (70-99)
--- NOTE | 2023-12-26 08:22 | W.PN.PUL3 ---
Today's Communication / Plan
-
Check echocardiogram
Check chest x-ray 12/26
Follow weights
No change in steroids
Continue PT efforts
Assessment
-
83-year-old male with history of pulmonary fibrosis/interstitial lung disease on prednisone therapy for the past few years, recently weaned off around 12/15/2023, compression fracture/osteoporosis, family history of vasculitis (both daughters),
presents with weakness, fatigue chest x-ray suggest possible pneumonia on top of progressive interstitial disease. We are asked to comment on his pulmonary process 12/23/2023
Acute hypoxic resp insufficiency, requiring midflow/NRB
tx to IMU on 12/23/23
steroids started 12/23/23
Generalized weakness, difficulty standing up
X 4 days preadmission
Chronic steroid therapy since 2021, weaned off 12/15/2023
Possible component of adrenal insufficiency
Progressive bilateral interstitial disease
TLC 64%, DLCO 40%
Progressive fibrosis/pneumonitis vs pneumonia
Negative procalcitonin
Traction bronchiectasis
ILD workup negative, bronchoscopy negative
Intolerant to antifibrotic therapy (Ofev)
Improvement on vital capacity with steroid therapy in the past
Mild leukocytosis
Chronic hypoxia, on home oxygen
3 L
Osteoporosis, compression fractures
Conditions present prior to admission
Hypertension/hyperlipidemia
GERD
Chronic rhinitis
Family history of vasculitis
1 daughter with Colin's granulomatosis
1 daughter with mixed connective tissue disease
Family history of lung cancer (brother)
Asbestos exposure history
[id number] history of smoking quit 1974
Plan/recommendations
At this time, patient remains critical with significant oxygen requirement, however appears to be somewhat improved
He is less fatigued, stronger on exam
CXR without sig change
muscle strength has improved following initiation of steroids suggesting possible component of adrenal insufficiency
Pt is conversant
Intolerant to antifibrotic therapy as op
Appears to have some form of steroid responsive process in the past per reviewing outpatient records
FVC improved with steroids in the past
Currently on high flow 50 L / 100%, 93-97% saturation
Positive fluid balance is noted
Moving forward
continue with IV steroids, doxycycline/Cefepime will continue
No change for now.
Procalcitonin negative
Will await chest x-ray 12/26 and consider narrowing antibiotics
ABG confirms hypoxia
Will continue to wean oxygen as able
PT/OT, out of bed to chair with nonrebreather on top of high flow as able
Positive fluid balance is noted. Would like to avoid pulmonary edema component
Check echocardiogram
Last echo 03/26/2023 with normal biventricular function, PA pressure 28
Follow weights, I's and O's
Continue GERD therapy
Outpatient osteoporosis therapy. Patient scheduled to see rheumatology
Continue calcium/vitamin D, do not suspect steroids will be weanable in the future
PT notes reviewed
Desaturates to 85% with activity
Continue PT, out of bed to chair
Updated at length at bedside 12/24
Confirmed DNR status with discussion with and patient
also had questions with regards to neck step if he deteriorates
Discussed transition to comfort measures, morphine, anxiolytic therapy
All questions were answered
Complex decision making process
Remains high risk situation
Will try to update later today
Patient is DNR
Subjective Data
-
Date of Service:
Date of Service: December 26, 2023
Subjective:
Overall, no significant change from pulmonary standpoint. Patient does have mild cough. Occasionally has memory issues, but is appropriate, oriented. Denies chest pain, abdominal pain, nausea. Feels that shortness of breath is stable
Objective Data
Data Reviewed
Vital Signs / I&O / Oxygen:
Vital Signs
Temp Pulse Resp BP Pulse Ox
98.3 F 87 20 139/71 95
12/26/23 03:53 12/26/23 07:42 12/26/23 07:42 12/26/23 06:00 12/26/23 07:42
Intake and Output
12/25/23 12/26/23 12/27/23
06:59 06:59 06:59
Intake Total 410 / 410 0 / 1870
Balance 410 / 410 1869 187
SaO2 95
Nasal Cannula flow liters per 50
minute
Physical Exam
General: Comfortable
HEENT: Normocephalic and Anicteric
Cardiovascular: S1-S2, Regular Rhythm, Murmur (n), Rub (n), Peripheral Edema (tr) and Calf Tenderness (n)
Respiratory: Wheeze (n), Crackles (Scattered anteriorly), Rhonchi (n), Non-Labored Respirations and Stridor (n)
GI: Soft, Non Distended and Non Tender
Neurology: Awake, Alert and No Motor Deficits (better muscle strength)
Skin: Good Color (mild pallor) and Cyanosis
Labs/Micro/Reports
Lab Data
12/26/23 04:23
12/26/23 04:23
Microbiology
12/20/23 20:16 Blood/Venous Blood Culture - Final
No Growth - Final Report
12/20/23 20:16 Blood/Venous Blood Culture - Final
No Growth - Final Report
12/24/23 18:17 Sputum Respiratory Culture - Preliminary
Usual Respiratory Lidia
12/24/23 18:17 Sputum Gram Stain - Preliminary
[2023-12-26] MEDS: NOVOLOG FLEXPEN-LOW RESISTANCE SC (08:23)
[2023-12-26] MEDS: RESTASIS 0.05% OPHTHALMIC EMULSION 1 DROPS BOTH EYES ×2 (09:09→20:45)
[2023-12-26] MEDS: OSCAL 500 + D 500 MG PO ×2 (09:09→20:45)
[2023-12-26] MEDS: VIBRAMYCIN 100 MG PO ×2 (09:10→20:45)
[2023-12-26] MEDS: LYRICA 100 MG PO ×2 (09:11→22:54)
[2023-12-26] MEDS: PROTONIX 40 MG PO (09:11)
[2023-12-26] MEDS: ASPIR LOW (ENTERIC COATED) 81 MG PO (09:11)
[2023-12-26] MEDS: MAXIPIME 2000 MG IV ×4 (09:12→22:54)
[2023-12-26] MEDS: STERILE WATER FOR INJECTION 10 ML IV ×4 (09:12→22:54)
[2023-12-26] MEDS: DECADRON 4 MG IV ×4 (09:13→22:54)
[2023-12-26] MEDS: LASIX 20 MG PO (09:14)
[2023-12-26] MEDS: MIRALAX PO (09:15)
--- NOTE | 2023-12-26 09:30 | PTCARENOTE ---
Patient received from shift mgr. Patient resting comfortably in bed. AAO, VSS. No events noted over night. No complaints of pain. Currently on HighFlow N/C 50L @ 100%, will have Resp attempt to wean as tolerated. To have ECHO later in the
AM. Call richardson in reach.
[2023-12-26] MEDS: MAALOX 30 ML PO ×2 (10:57→17:10)
[2023-12-26] MEDS: LYRICA 50 MG PO ×2 (11:00→17:11)
--- NOTE | 2023-12-26 11:10 | W.PN.HOSP.TC ---
Today's Communication/Plan
-
continue steroids at current dose
oxygenation with SaO2 95%, but on high flow NC, cautious weaning
Assessment / Plan
Assessment / Plan
Acute on Chronic hypoxic respiratory failure/progressive ILD
Exertional dyspnea
- CXR reviewed and increased infiltrate/worsening for ILD
- Minimal leukocytosis, procalcitonin neg.
- was on cefepime and azithromycin . Changed to doxycycline due to QTc prolongation
- Rapid response was called on 12/22 for worsening hypoxia - repeat CXR showed worsening infiltrates - started on IV steroids after discussion with pulmonology - moved to IMU
- Currently on high flow @ 50L/min o2, wean off as possible.
Interstitial lung disease
COPD
- f/us with gelatin maker utility office dr Andino
- patient have been tried to be weaned off of steroids OP basis. Now on Decadron 4 mg IV q8h
- pulmonology asked to evaluate for possible need of reinitiation of steroid trial, discussed with Dr. Archer
B/L Acacia intermittent edema
Chronic diastolic HF
- euvolemic, no signs of exacerbation
- cont . PO Lasix for now
Generalized weakness
-Fall precaution
-Currently have very minimal reserve and will hold on PT OT evaluation today
HX Syncope on last admission
HX Known T12 comp fx
Coronary artery disease:� cont ASA/statin
Peripheral Neuropathy: cont Lyrica
Essential hypertension:
GERD: on PPI
Hyperlipidemia: cont statin
DVT Px: LMWH
Code: DNR/DNI - patient agreeable after discussion.
Remains high risk for complication/respiratory arrest and . Reviewed with and gnd dgt in room
Continue monitoring in imu
Anticipated Discharge: > 48 hours
Subjective/Interval History
-
Date of Service: December 26, 2023
Awake, alert, conversant
Objective Data
-
Labs:
Laboratory Results
12/26/23
04:23
WBC 14.7 H
Hgb 11.5 L
Hct 34.8 L
Plt Count 305
Sodium 138
Potassium 4.1
Chloride 109 H
Carbon Dioxide 24
BUN 45 H
Creatinine 1.2
Glucose 139 H
Calcium 9.6
Total Bilirubin 0.7
AST 99 H
ALT 71 H
Alkaline Phosphatase 92
Vital Signs:
Vital Signs
Temp Pulse Resp BP Pulse Ox
99.0 F 80 20 118/67 95
12/26/23 07:34 12/26/23 09:14 12/26/23 07:42 12/26/23 09:14 12/26/23 07:42
I&O
12/25/23 12/26/23 12/27/23
06:59 06:59 06:59
Intake Total 410 / 410 1869
Balance 410 / 410 1869
Review of Systems
-
History Source: Patient and Family ( and gnd dgt in room)
Constitutional: Denies Fever
EENT: Reports No Symptoms Reported
Respiratory: Reports Trouble Breathing
Cardiac: Reports No Symptoms; Denies Chest Pain
Abdomen/GI: Reports No Symptoms
Neuro: Reports No Symptoms
Physical Exam
-
General: Well Developed, Well Nourished and No Apparent Distress
HEENT: Normocephalic, Atraumatic and Moist Mucous Membranes
Respiratory: Rales (coarse interstitial rales throughout lungs); Negative Wheezes
Cardiac: Regular Rhythm and S1/S2
GI: Soft, Nontender and Nondistended
Musculoskeletal: No Clubbing, No Cyanosis and No Edema
Neuro: Awake, Alert and Oriented
[2023-12-26] MEDS: NOVOLOG FLEXPEN-LOW RESISTANCE 1 UNITS SC ×2 (12:10→17:14)
[2023-12-26 12:17] LABS: Glucose - Point of Care 155 mg/dl (70-99)
--- NOTE | 2023-12-26 16:49 | CM ---
Patient with Dx Acute on Chronic hypoxic respiratory failure/progressive ILD. O2 High Flow 50L. Receiving IV Abx & IV steroids. PT & OT 12/25; requires assist of 2, recommend skilled rehab.
CM continuing to follow for d/c needs. Discharge plans will depend on the patient's progress.
Plan approach patient/ for d/c plans once respiratory status improves.
Plan TBD.
[2023-12-26] MEDS: LOVENOX 40 MG SC (17:13)
[2023-12-26 17:17] LABS: Glucose - Point of Care 155 mg/dl (70-99)
--- NOTE | 2023-12-26 20:45 | PTCARENOTE ---
pulse ox decreased to 82% during activity. pulse ox unable to increase higher than 85% on hiflo 50/100. 15l NRB and HIflow applied. pulse ox >94%. Will monitor.
[2023-12-26] MEDS: LIPITOR 10 MG PO (22:54)
[2023-12-26 23:58] LABS: Glucose - Point of Care 144 mg/dl (70-99)
[2023-12-27] VITALS (13 sets, daily range): BP systolic 117–161; BP diastolic 70–123; BMI 29.4
[2023-12-27] MEDS: TYLENOL 500 MG PO (00:45)
[2023-12-27] MEDS: NORCO 5/325 1 TABLET PO (01:26)
[2023-12-27] MEDS: DUONEB 3 ML INH ×3 (03:09→11:04)
[2023-12-27] MEDS: MORPHINE SULFATE 2 MG IV ×5 (03:19→23:26)
--- NOTE | 2023-12-27 03:20 | PTCARENOTE ---
pulse ox in 70's. rt at bedside. pt remains on highflow and 15lnrb. duoneb given. crystal lapper notified. 2mg morphine given w/ relief of wob. will monitor
[2023-12-27] MEDS: NOVOLOG FLEXPEN-LOW RESISTANCE SC ×2 (08:06→13:50)
[2023-12-27 08:07] LABS: Glucose - Point of Care 147 mg/dl (70-99)
[2023-12-27] MEDS: PROTONIX 40 MG PO (09:20)
[2023-12-27] MEDS: OSCAL 500 + D 500 MG PO (09:20)
[2023-12-27] MEDS: ASPIR LOW (ENTERIC COATED) 81 MG PO (09:21)
[2023-12-27] MEDS: MAXIPIME 2000 MG IV (09:21)
[2023-12-27] MEDS: STERILE WATER FOR INJECTION 10 ML IV (09:21)
[2023-12-27] MEDS: VIBRAMYCIN 100 MG PO (09:21)
[2023-12-27] MEDS: MIRALAX 17 GRAMS PO (09:21)
[2023-12-27] MEDS: DECADRON 4 MG IV ×2 (09:21→16:22)
[2023-12-27] MEDS: RESTASIS 0.05% OPHTHALMIC EMULSION 1 DROPS BOTH EYES ×2 (09:21→21:39)
[2023-12-27] MEDS: LYRICA 100 MG PO (09:21)
[2023-12-27] MEDS: LASIX 20 MG PO (09:21)
--- NOTE | 2023-12-27 09:21 | W.PN.PUL3 ---
Today's Communication / Plan
-
Desaturation ongoing despite HFNC + NRB
No further treatment options at this time, he is DNR
at bedside, they were both agreeable to comfort measures which is appropriate
Care team updated
Prognosis poor
Assessment
-
83-year-old male with history of pulmonary fibrosis/interstitial lung disease on prednisone therapy for the past few years, recently weaned off around 12/15/2023, compression fracture/osteoporosis, family history of vasculitis (both daughters),
presents with weakness, fatigue chest x-ray suggest possible pneumonia on top of progressive interstitial disease. We are asked to comment on his pulmonary process 12/23/2023
Acute hypoxic resp insufficiency, requiring midflow/NRB
tx to IMU on 12/23/23
steroids started 12/23/23
Generalized weakness, difficulty standing up
X 4 days preadmission
Chronic steroid therapy since 2021, weaned off 12/15/2023
Possible component of adrenal insufficiency
Progressive bilateral interstitial disease
TLC 64%, DLCO 40%
Progressive fibrosis/pneumonitis vs pneumonia
Negative procalcitonin
Traction bronchiectasis
ILD workup negative, bronchoscopy negative
Intolerant to antifibrotic therapy (Ofev)
Improvement on vital capacity with steroid therapy in the past
Mild leukocytosis
Chronic hypoxia, on home oxygen 3 L
Osteoporosis, compression fractures
Conditions present prior to admission
Hypertension/hyperlipidemia
GERD
Chronic rhinitis
Family history of vasculitis
1 daughter with Colin's granulomatosis
1 daughter with mixed connective tissue disease
Family history of lung cancer (brother)
Asbestos exposure history
[id number] history of smoking quit 1974
Plan/recommendations
At this time, patient remains critical with significant oxygen requirement, however appears to be somewhat improved
HFNC 55/100% unable to wean further, now with NRB additionally
CXR repeated looks slightly improved but overall not resolved
Muscle strength has improved following initiation of steroids suggesting possible component of adrenal insufficiency
Pt is conversant
Intolerant to antifibrotic therapy as op
Appears to have some form of steroid responsive process in the past per reviewing outpatient records
Moderate restriction on PFTs from 2022
FVC improved with steroids in the past
Positive fluid balance is noted
Continue with IV steroids, doxycycline/Cefepime will continue
No change for now.
Procalcitonin negative
Will await chest x-ray 12/26 and consider narrowing antibiotics
ABG confirms hypoxia
Will continue to wean oxygen as able
PT/OT, out of bed to chair with nonrebreather on top of high flow as able
Positive fluid balance is noted. Would like to avoid pulmonary edema component
proBNP 851 on admission
Check echocardiogram--pulm HTN has worsened 53 with RV pressure overload
Last echo 03/26/2023 with normal biventricular function, PA pressure 28
Follow weights, I's and O's
Weight on admission 94.6kg, now 85.2
Maintained on daily lasix 20mg PO
Continue GERD therapy
Outpatient osteoporosis therapy. Patient scheduled to see rheumatology
Continue calcium/vitamin D, do not suspect steroids will be weanable in the future
PT notes reviewed
Desaturates to 85% with activity
Continue PT, out of bed to chair
Updated at length at bedside 12/24
Confirmed DNR status with discussion with and patient
also had questions with regards to next step if he deteriorates
Discussed transition to comfort measures, morphine, anxiolytic therapy--palliation seems appropriate at this juncture
All questions were answered
Complex decision making process
Remains high risk situation
Patient is DNR
Diagnostic Data
CXR 12/27/23- Overall slight improvement in lung volumes compared to the exam from 3 days ago. Findings are consistent with extensive interstitial and airspace pneumonia, superimposed on extensive interstitial fibrosis.
12/24/23- There is� extensive acinar and interstitial airway disease throughout both lungs, stable when compared with the 12/23/2023 study but worse when compared with the 10/10/2023 examination suggesting acute interstitial pneumonia superimposed upon
extensive interstitial fibrosis.
Thoracic CT 12/20/23- Subacute to chronic severe T12 compression fracture as described, similar to priors.
Chronic interstitial lung disease changes with superimposed right lower lobe pneumonia.
CHEST CT 04/26/22- Redemonstration of moderate pulmonary fibrosis with peripheral basilar predominance. Similar traction bronchiectasis at the dependent lung base and right upper lobe. Mild honeycombing along the lateral peripheral and basilar
aspect of the right lung and mildly along the lateral aspect of the left lung, slightly progressed. No significant ground glass opacities, centrilobular nodules or emphysematous changes.� No pleural effusion. Moderate coronary artery calcifications.
ECHO 12/26/23- Normal left ventricular systolic function. Left ventricular ejection fraction�is 55-60%.�Enlarged right ventricular size. Reduced right ventricular systolic function.�Septal flattening in systole consistent with RV pressure
overload.�Mild tricuspid regurgitation. Moderately elevated PASP. Estimated pulmonary�artery pressure of 53 mmHg, assuming a right atrial pressure of 3 mmHg.�Compared to 04/02/23: there is now evidence of RV dysfunction, and PASP has�increased from
28 mmHg to 53 mmHg.
12/20/21- Normal biventricular size and systolic function without regional wall motion�abnormality.�Mild aortic regurgitation.�Mild pulmonary hypertension.�Compared to previous echo 07/06/2021, the pulmonary pressure has slightly�increased from 42mmHg
on the prior study to 46mmHg today.
PFT 02/07/23- FEV1 2.8L 108%, FVC 3.22L 87%, ratio 87. TLC 4.46L 64%, DLCO 40% (moderate restriction and moderate diffusion impairment)
All relevant imaging reviewed.
Subjective Data
-
Date of Service:
Date of Service: December 27, 2023
Chief Complaint: Pulmonary Follow Up
Subjective:
patient seen and examined, remains ill
at bedside
desaturation ongoing despite max oxygen therapy, HFNC with NRB
Objective Data
Data Reviewed
Vital Signs / I&O / Oxygen:
Vital Signs
Temp Pulse Resp BP Pulse Ox
97.8 F 96 24 161/99 91
12/27/23 07:35 12/27/23 07:24 12/27/23 07:24 12/27/23 06:14 12/27/23 07:25
Intake and Output
12/26/23 12/27/23 12/28/23
06:59 06:59 06:59
Intake Total 1870 / 0 480 / 480
Balance 1870 / 0 480 / 480
SaO2 91
Nasal Cannula flow liters per 55
minute
Physical Exam
General: Respiratory Distress (moderate, dyspneic with speaking), Poor Appetite and Other (chronically ill appearing)
HEENT: Normocephalic and Anicteric
Cardiovascular: S1-S2, Regular Rhythm, Murmur (n), Rub (n), Peripheral Edema (tr) and Calf Tenderness (n)
Respiratory: Wheeze (n), Crackles (Scattered anteriorly), Rhonchi (n) and Stridor (n)
GI: Soft, Non Distended and Non Tender
Neurology: Awake, Alert, Oriented, AO x 3 and No Motor Deficits (better muscle strength)
Skin: Good Color (mild pallor) and Cyanosis
Labs/Micro/Reports
Lab Data
12/26/23 04:23
12/26/23 04:23
Microbiology
12/24/23 18:17 Sputum Respiratory Culture - Final
Usual Respiratory Lidia
12/24/23 18:17 Sputum Gram Stain - Final
12/20/23 20:16 Blood/Venous Blood Culture - Final
No Growth - Final Report
12/20/23 20:16 Blood/Venous Blood Culture - Final
No Growth - Final Report
--- NOTE | 2023-12-27 10:53 | PTCARENOTE ---
Assumed care of patient at beginning of this shift from previous RN with NRB and high flow in use. POx up to 93% when patient asleep; however while awake or talking, POx drops to 86-88%. He attempted breakfast but c/o shortness of breath and could
not finish. Without activity, POx dropped to 77%; patient took several minutes to recover to 86%. remained at bedside. Dr Steiner in to see patient and Dr Limon made aware. See updated orders. Patient remains very dyspneic on minimal exertion
(talking, position change). Currently 92%. See worklist for full assessment and vital signs; see MAR for med administration.
[2023-12-27] MEDS: MORPHINE SULFATE 1 MG IV ×4 (11:05→19:06)
--- NOTE | 2023-12-27 12:33 | HOSPNOTE ---
Met with patient and family. Patient would like to wait for other family members to arrive and be able to speak with them. The patient will speak with floor RN when medications are needed. The patient will need a morphine drip and scheduled ativan
and then oxygen titrated down. We will continue to follow. Case management aware.
[2023-12-27] MEDS: LYRICA 50 MG PO ×2 (12:46→17:44)
--- NOTE | 2023-12-27 12:49 | CM ---
Patient with Dx Acute on Chronic hypoxic respiratory failure/progressive ILD. O2 High Flow 55L. IV MS prn. Comfort care.
CM Consult: Hospice
Spoke with Jael Hospice nurse; she was asked by Dr Limon to meet with the patient/family and she already met with the patient and . Patient will remain here with Hospice. Referral placed.
Plan Hospice.
--- NOTE | 2023-12-27 16:13 | W.PN.HOSP.TC ---
Today's Communication/Plan
-
initiate comfort care
transfer to private room
Assessment / Plan
Assessment / Plan
12/26
Started on comfort care today
Started on as needed morphine and Ativan
Hospice consulted
Patient waiting for further family members to visit and then agreeable to be switched to morphine drip

Acute on Chronic hypoxic respiratory failure/progressive ILD
Exertional dyspnea
- CXR reviewed and increased infiltrate/worsening for ILD
- Minimal leukocytosis, procalcitonin neg.
- was on cefepime and azithromycin . Changed to doxycycline due to QTc prolongation
- Rapid response was called on 12/22 for worsening hypoxia - repeat CXR showed worsening infiltrates - started on IV steroids after discussion with pulmonology - moved to IMU
- Currently on maximal high flow 60L/min and venti mask - saturating in 70s. Pulmo discussed need of comfort care and started on PRN morphine drip and ativan.
Interstitial lung disease
COPD
- f/us with insurance instructor office dr Andino
- patient have been tried to be weaned off of steroids OP basis. Now on Decadron 4 mg IV q8h
- pulmonology asked to evaluate for possible need of reinitiation of steroid trial, discussed with Dr. Archer
B/L Acacia intermittent edema
Chronic diastolic HF
- euvolemic, no signs of exacerbation
- continue PO Lasix for now
Generalized weakness
-Fall precaution
-Currently have very minimal reserve and will hold on PT OT evaluation today
HX Syncope on last admission
HX Known T12 comp fx
Coronary artery disease:� cont ASA/statin
Peripheral Neuropathy: cont Lyrica
Essential hypertension:
GERD: on PPI
Hyperlipidemia: cont statin
DVT Px: LMWH
Code: DNR/DNI - patient agreeable after discussion.

Anticipated Discharge: 24 - 48 hours
Subjective/Interval History
-
Date of Service: December 27, 2023
patient hypoxic 70% on high flow and venti mask
afebrile overnight
Objective Data
-
Vital Signs:
Vital Signs
Temp Pulse Resp BP Pulse Ox
98.9 F 105 31 137/84 85
12/27/23 15:38 12/27/23 12:00 12/27/23 12:00 12/27/23 12:00 12/27/23 12:00
I&O
12/26/23 12/27/23 12/28/23
06:59 06:59 06:59
Intake Total 1869 480 / 480
Balance 1869 480 / 480
Review of Systems
-
Respiratory: Reports Cough
Cardiac: Reports No Symptoms
Abdomen/GI: Reports No Symptoms
Physical Exam
-
General: No Apparent Distress
HEENT: Oxygen
Respiratory: Clear to Auscultation and Wheezes
Cardiac: Regular Rhythm and S1/S2; Negative Murmur
GI: Soft, Nontender and Nondistended
Musculoskeletal: No Edema
Neuro: Awake, Alert and Oriented
[2023-12-27] MEDS: STERILE WATER FOR INJECTION IV (16:29)
[2023-12-27] MEDS: NSS (PRESERVATIVE FREE) 0.5 ML IV (18:07)
[2023-12-27] MEDS: ATIVAN 1 MG IV (18:07)
--- NOTE | 2023-12-27 19:19 | PTCARENOTE ---
remains at bedside. Many family members in to see patient; stated that patient had spoken with all family members that he needed to. Morphine had been administered for comfort as ordered (see MAR for administration times). Patient
concerned that he be able to speak with family when they were visiting. After they had left, stated patient felt scared; patient stated he also felt anxious. Medicated with Ativan 1mg as per prn dose. While in report with oncoming shift,
patient's POx decreased to 80% and patient was very restless trying to pull of his oxygen. Patient able to be reoriented, but still restless. Morphine 1mg given as per prn dose. Report given to Ludmila RN who was in to meet patient; remains at
bedside.
[2023-12-27] MEDS: HALDOL 1 MG IV ×2 (21:34→23:27)
--- NOTE | 2023-12-27 22:17 | W.PN.UPDATE ---
Update Note
Progress Note Update
RN notified DIRECTOR SOCIAL regarding patient's comfort care. Patient seen on the floor, and noted in distress, requested initiating comfort care with morphine drip. Comfort care orders initiated with morphine drip. Case management consulted.
[2023-12-27] MEDS: LYRICA PO (23:11)
[2023-12-27] MEDS: OSCAL 500 + D PO (23:11)
[2023-12-27] MEDS: MORPHINE 100 IV (23:23)
[2023-12-28] VITALS: BP 132/85
[2023-12-28] MEDS: MORPHINE SULFATE 2 MG IV ×3 (00:15→02:12)
[2023-12-28] MEDS: STERILE WATER FOR INJECTION IV ×2 (01:19→10:16)
[2023-12-28] MEDS: MORPHINE SULFATE 4 MG IV ×3 (03:12→10:17)
--- NOTE | 2023-12-28 05:49 | PTCARENOTE ---
Early in shift Pt in respiratory distress, RN needing to push morphine. Night BAKER PASTRY to floor to start gtt jayce call. See work list for assessment and mar for medication. Pt now appearing to be resting comfortably, respiration 10-16 and even. at
bed side, emotional support given through out night.
[2023-12-28] MEDS: RESTASIS 0.05% OPHTHALMIC EMULSION 1 DROPS BOTH EYES (10:15)
--- NOTE | 2023-12-28 10:42 | W.PN.PUL.V3 ---
Today's Communication / Plan
-
Comfort a priority
Morphine drip
Pulmonary will sign off
Assessment
-
83-year-old male with history of pulmonary fibrosis/interstitial lung disease on prednisone therapy for the past few years, recently weaned off around 12/15/2023, compression fracture/osteoporosis, family history of vasculitis (both daughters),
presents with weakness, fatigue chest x-ray suggest possible pneumonia on top of progressive interstitial disease. We are asked to comment on his pulmonary process 12/23/2023
Acute hypoxic resp insufficiency, requiring midflow/NRB
tx to IMU on 12/23/23
steroids started 12/23/23
Generalized weakness, difficulty standing up
X 4 days preadmission
Chronic steroid therapy since 2021, weaned off 12/15/2023
Possible component of adrenal insufficiency
Progressive bilateral interstitial disease
TLC 64%, DLCO 40%
Progressive fibrosis/pneumonitis vs pneumonia
Negative procalcitonin
Traction bronchiectasis
ILD workup negative, bronchoscopy negative
Intolerant to antifibrotic therapy (Ofev)
Improvement on vital capacity with steroid therapy in the past
Mild leukocytosis
Chronic hypoxia, on home oxygen 3 L
Osteoporosis, compression fractures
Conditions present prior to admission
Hypertension/hyperlipidemia
GERD
Chronic rhinitis
Family history of vasculitis
1 daughter with Colin's granulomatosis
1 daughter with mixed connective tissue disease
Family history of lung cancer (brother)
Asbestos exposure history
[id number] history of smoking quit 1974
Plan
Events noted
Comfort a priority
Morphine drip initiated
Reviewed with [employer] SHARED SERVICES CONSULTANT and nursing-high flow oxygen can be weaned
Family members at bedside
Pulmonary will sign off-please call with questions
Diagnostic Data
CXR 12/27/23- Overall slight improvement in lung volumes compared to the exam from 3 days ago. Findings are consistent with extensive interstitial and airspace pneumonia, superimposed on extensive interstitial fibrosis.
12/24/23- There is� extensive acinar and interstitial airway disease throughout both lungs, stable when compared with the 12/23/2023 study but worse when compared with the 10/10/2023 examination suggesting acute interstitial pneumonia superimposed upon
extensive interstitial fibrosis.
Thoracic CT 12/20/23- Subacute to chronic severe T12 compression fracture as described, similar to priors.
Chronic interstitial lung disease changes with superimposed right lower lobe pneumonia.
CHEST CT 04/26/22- Redemonstration of moderate pulmonary fibrosis with peripheral basilar predominance. Similar traction bronchiectasis at the dependent lung base and right upper lobe. Mild honeycombing along the lateral peripheral and basilar
aspect of the right lung and mildly along the lateral aspect of the left lung, slightly progressed. No significant ground glass opacities, centrilobular nodules or emphysematous changes.� No pleural effusion. Moderate coronary artery calcifications.
ECHO 12/26/23- Normal left ventricular systolic function. Left ventricular ejection fraction�is 55-60%.�Enlarged right ventricular size. Reduced right ventricular systolic function.�Septal flattening in systole consistent with RV pressure
overload.�Mild tricuspid regurgitation. Moderately elevated PASP. Estimated pulmonary�artery pressure of 53 mmHg, assuming a right atrial pressure of 3 mmHg.�Compared to 04/02/23: there is now evidence of RV dysfunction, and PASP has�increased from
28 mmHg to 53 mmHg.
12/20/21- Normal biventricular size and systolic function without regional wall motion�abnormality.�Mild aortic regurgitation.�Mild pulmonary hypertension.�Compared to previous echo 07/06/2021, the pulmonary pressure has slightly�increased from 42mmHg
on the prior study to 46mmHg today.
PFT 02/07/23- FEV1 2.8L 108%, FVC 3.22L 87%, ratio 87. TLC 4.46L 64%, DLCO 40% (moderate restriction and moderate diffusion impairment)
All relevant imaging reviewed.
Subjective Data
-
Date of Service:
Date of Service: December 28, 2023
Chief Complaint: Pulmonary Follow Up and Dyspnea Follow Up
Subjective:
Events noted, now on a morphine drip and comfortable
Review of Systems
General: Other ( per HPI)
Objective Data
Data Reviewed
Vital Signs / I&O:
Vital Signs
Temp Pulse Resp BP Pulse Ox
98.1 F 105 26 132/85 70
12/28/23 07:18 12/28/23 00:00 12/28/23 00:00 12/28/23 00:00 12/28/23 00:00
Intake and Output
12/27/23 12/28/23 12/29/23
06:59 06:59 06:59
Intake Total 480 / 480 20 / 20
Output Total 0 / 0
Balance 480 / 480 20 / 20
SaO2: 70
Nasal Cannula flow liters per minute: 55
Physical Exam
General: Respiratory Distress (moderate, dyspneic with speaking), Poor Appetite and Other (chronically ill appearing)
HEENT: Normocephalic and Anicteric
Cardiovascular: Regular Rhythm, Murmur (n), Rub (n), Peripheral Edema (tr) and Calf Tenderness (n)
Respiratory: Wheeze (n), Crackles (Scattered anteriorly), Rhonchi (n) and Stridor (n)
GI: Soft, Non Distended and Non Tender
Neurology: Awake, Alert, AO x 3 and No Motor Deficits (better muscle strength)
Skin: Good Color (mild pallor) and Cyanosis
Labs/Micro/Reports
Lab Data
12/26/23 04:23
12/26/23 04:23
Microbiology
12/24/23 18:17 Sputum Respiratory Culture - Final
Usual Respiratory Lidia
12/24/23 18:17 Sputum Gram Stain - Final
12/20/23 20:16 Blood/Venous Blood Culture - Final
No Growth - Final Report
12/20/23 20:16 Blood/Venous Blood Culture - Final
No Growth - Final Report
--- NOTE | 2023-12-28 10:53 | W.PN.DEATH ---
Pronouncement of
-
Called to see patient to pronounce.
No spontaneous heart tones or respirations noted.
Patient not responsive to verbal stimuli.
Patient is pronounced .
Time of : 10:30
Date of : 12/28/23
Cause of : Hypoxic respiratory failure, Interstitial lung disease
Family Notified: Yes
--- NOTE | 2023-12-28 12:46 | PTCARENOTE ---
Assumed car of pt this am at walking rounds, Pt is unresponsive to stimuli. He has high flow oxugen intact but having conversation with respiratory therapy, nursing and Dr. Sree Limon and requests high flow removed this morning. Pt noted to have
periods of apnea 15-20 secs and increasing in frequency. At 0800 upon assuming care pt appeared comfortable with irregular rate of resp but towards 10 am his apnea began to increase in length and frequency and grunting/accessory muscle use began. Pt
given breakthrough dose of Morphine Sulfate. Pt and daughter at bedside and this is given with their agreement and understanding. @1030 pt passed peacefully, no heart rate or respiration with at bedside. Dr. Sree Limon notified and arrived
to pronounce pt. Family at bedside, tearful and sharing stories, then left to go home. Post Mortem care provided.
--- NOTE | 2023-12-28 13:01 | W.PN.HOSP.TC ---
Today's Communication/Plan
-
Continue comfort care measures
Assessment / Plan
Assessment / Plan
12/26
Started on comfort care today
Started on as needed morphine and Ativan
Hospice consulted
Patient waiting for further family members to visit and then agreeable to be switched to morphine drip
12/27
Patient on morphine drip and comfortable
Patient plan to be switched from high flow to nasal cannula
Spouse at bedside and all questions answered

Acute on Chronic hypoxic respiratory failure/progressive ILD
Exertional dyspnea
- CXR reviewed and increased infiltrate/worsening for ILD
- Minimal leukocytosis, procalcitonin neg.
- was on cefepime and azithromycin . Changed to doxycycline due to QTc prolongation
- Rapid response was called on 12/22 for worsening hypoxia - repeat CXR showed worsening infiltrates - started on IV steroids after discussion with pulmonology - moved to IMU
- Currently on maximal high flow 60L/min and venti mask - saturating in 70s. Pulmo discussed need of comfort care and started on PRN morphine drip and ativan.
Interstitial lung disease
COPD
- f/us with rn mds coordinator office dr Andino
- patient have been tried to be weaned off of steroids OP basis. Now on Decadron 4 mg IV q8h
- pulmonology asked to evaluate for possible need of reinitiation of steroid trial, discussed with Dr. Archer
B/L Acacia intermittent edema
Chronic diastolic HF
- euvolemic, no signs of exacerbation
- continue PO Lasix for now
Generalized weakness
-Fall precaution
-Currently have very minimal reserve and will hold on PT OT evaluation today
HX Syncope on last admission
HX Known T12 comp fx
Coronary artery disease:� cont ASA/statin
Peripheral Neuropathy: cont Lyrica
Essential hypertension:
GERD: on PPI
Hyperlipidemia: cont statin
DVT Px: LMWH
Code: DNR/DNI - patient agreeable after discussion.

Delayed entry note for service provided on 12/28/23 at 0900
Anticipated Discharge: Within 24 hours
Subjective/Interval History
-
Date of Service: December 28, 2023
Delayed entry for service provided at 0900
Patient on morphine drip and comfortable
spouse at bedside
Objective Data
-
Vital Signs:
Vital Signs
Temp Pulse Resp BP Pulse Ox
98.1 F 105 26 132/85 70
12/28/23 07:18 12/28/23 00:00 12/28/23 00:00 12/28/23 00:00 12/28/23 10:44
I&O
12/27/23 12/28/23 12/29/23
06:59 06:59 06:59
Intake Total 480 / 480 20 / 20
Output Total 0 / 0
Balance 480 / 480 20 / 20
Review of Systems
-
Unable to obtain full review of systems at this time due to: Acuity
--- NOTE | 2023-12-28 14:02 | W.DCSUMMARY ---
Discharge Summary
Discharge Data
Date of Admission: 12/20/23
Date of Discharge: 12/28/23
-
Pending Results: No
Hospital Course
Dizziness symptoms patient who on 12/28/23 at 1030
List of hospital diagnosis:
Acute on chronic hypoxic respiratory failure
Progressive interstitial lung disease
Pulmonary fibrosis
Chronic obstructive pulmonary disease
Chronic diastolic congestive heart failure
History of thoracic 12 vertebral compression fracture
Coronary artery disease
Peripheral neuropathy
Essential hypertension
Gastroesophageal reflux disease
Hyperlipidemia
Hospital course:
Patient is 83-year-old male with above-mentioned past medical history came to ER for having new onset of shortness of breath and worsening weakness. Patient have history of COPD/interstitial lung disease and patient has been recently been tried to
be weaned off of steroids by primary prototype special build. In ER evaluation of his chest x-ray suggestive of patient possibly having new right lower lobe pneumonia and resulting hypoxia. Patient was started empiric antibiotics. No specific organism
could be identified as causative organism. Despite IV antibiotic therapy patient hypoxia worsening and pulmonology was involved in care for further evaluation. Patient had rapid response at one point due to significant hypoxia requiring transition
to higher level care in intermediate care unit. Repeat lung imaging suggesting patient having progressive interstitial lung disease and office records were reviewed. Patient interstitial lung disease becoming nonresponding to steroid as well.
Patient was started on high-dose IV steroid for trial. Unfortunately patient symptoms did not improve and patient continued to require progressively higher amount of oxygen. Patient prognosis was discussed with patient and family patient was
transition to DNR/DNI status and later to comfort care. Patient on comfort care measures on 12/28/2023 at 1030.
Discharge Plan
-
Patient Disposition:
Date/Time
Date/Time: 12/28/23 10:30
Discharge Date and Time
Discharge Date/Time: 12/28/23 10:30
== END 2023-12-28 10:30 | disposition expired | DRG 196 ==
LOC: IMU 21:27
PROVIDERS: Emergency Medicine; Internal Medicine; ADMITTING PHYSICIAN Internal Medicine; ATTENDING PHYSICIAN Hospitalist; CONSULT PHYSICIAN Internal Medicine Critical Care Medicine; EMERGENCY PHYSICIAN Emergency Medicine; FAMILY PHYSICIAN Family Medicine
DX: J84.89 Other specified interstitial pulmonary diseases (principal); J18.9 Pneumonia, unspecified organism; J96.21 Acute and chronic respiratory failure with hypoxia; I50.32 Chronic diastolic (congestive) heart failure; I11.0 Hypertensive heart disease with heart failure; I25.10 Atherosclerotic heart disease of native coronary artery without angina pectoris; G62.9 Polyneuropathy, unspecified; K21.9 Gastro-esophageal reflux disease without esophagitis; Z66 Do not resuscitate
CPT/HCPCS: 36600; 71045; 72128; 80048; 80053; 80202; 81003; 82805; 82962; 83735; 83880; 84100; 84145; 84443; 84484; 85025; 85027; 86738; 87040; 87070; 87205; 87449; 87502; 87641; 87811; 87899; 92610; 93005; 93306; 94640; 96365; 96375; 97163; 97166; 97530; 97535; 99285